=== PATIENT | female | born 1940 | race Caucasian/White ===

== ENCOUNTER 2023-03-26 15:49 | Emergency (ER) | payer MEDICARE, SELFPAY ==
[2023-03-26 16:03] VITALS: BP 100/51
--- NOTE | 2023-03-26 16:49 | ED.GENMED ---
History of Present Illness
General
Chief Complaint: Abdominal Symptoms
Source: patient
Exam Limitations: none
Time Seen by Provider: 03/26/23 16:37
Travel History
Have you had any contact with someone who has COVID-19?: No
Do you have any symptoms of coronavirus? Fever > 100 degrees, chills, cough, shortness of breath, sore throat, loss of taste or smell, muscle aches, or headache?: No
History of Present Illness
History of Present Illness:
82-year-old female sudden onset of watery diarrhea today. Described as brown. No blood or mucus. No melena or dark stool. No abdominal pain no fever. No unusual recent food ingestion. No travel history. No recent antibiotics. Patient does
have a history of colitis. Patient has not had diarrhea in the last almost 2 hours. Patient has taken 2 arthritis medications in the last 2 days for ongoing right hip and knee arthritis.
Past History
Past History
ED Past Medical History: Arrthythmia (Atrial fibrillation), Cancer, HTN and Other (Osteoarthritis)
ED Past Surgical History: Other (carotd surgery, lung surgery)
Patient has exhibited threatening behavior?: No
PSI?: No
Review of Systems
Review of Systems
All Other Systems: Not applicable
Constitutional: Denies fever
Respiratory: Reports no symptoms
Cardiac: Reports no symptoms
Phy Exam
Physical Exam
Physical Exam:
GENERAL: Alert and oriented in no apparent distress
EYE: Orbits normal.
NECK: Supple
CARDIAC: Regular rate and rhythm without any obvious murmurs.
LUNGS: Clear breath sounds,normal
ABDOMEN: Soft, without focal tenderness or distention. Stool brown to yellow and heme-negative
NEUROLOGICAL: Alert and oriented , grossly non-focal
, no rash or lesion, no discoloration, skin intact.
MUSCULOSKELETAL: No edema,no deformity.Good color
PSYCH: Normal and appropriate interaction.
Course
Orders/Labs/Results
Orders:
Orders
03/26/23 16:47
IV Insert/Care/Rem.- Treatment PRN
0.9% Sodium Chloride 500 ml [Nss] 500 ml IV BOLUS
03/26/23 16:59
Complete Blood Count/With Diff Urgent
Comprehensive Metabolic Panel Urgent
Lipase Urgent
03/26/23 19:30
0.9% Sodium Chloride 1000 ml [Nss] 1,000 ml IV 150 mls/hr
Abnormal Lab Results
03/26/23
16:59
RBC 3.53 L 10^6/uL
(4.20-5.40)
Hct 34.8 L %
(37.0-47.0)
MCH 34.6 H pg
(27.0-31.0)
Absolute Monos (auto) 0.7 H 10^3/uL
(0.1-0.6)
Lymphocytes % 19.2 L %
(20.5-51.1)
Monocytes % 10.1 H %
(1.7-9.3)
Sodium 134 L mmol/L
(135-145)
Carbon Dioxide 20 L mmol/L
(22-30)
BUN 64 H mg/dl
(7-17)
AST 56 H U/L
(14-36)
ALT 51 H U/L
(0-35)
Total Protein 5.9 L g/dl
(6.3-8.2)
Albumin 3.4 L g/dl
(3.5-5.0)
03/26/23 16:59
03/26/23 16:59
Vital Signs
Initial and Last Documented VS:
Initial Vital Signs
Temp Pulse Resp BP Pulse Ox
98.5 F 74 16 100/51 96
03/26/23 16:03 03/26/23 16:03 03/26/23 16:03 03/26/23 16:03 03/26/23 16:03
Last Documented Vital Signs
Temp Pulse Resp BP Pulse Ox
98.5 F 80 18 117/51 98
03/26/23 16:03 03/26/23 22:22 03/26/23 22:22 03/26/23 22:22 03/26/23 22:22
MDM/Problems Addressed
Differential Diagnosis Includes:
Patient describing watery diarrhea throughout the day. No blood or mucus. Testing negative. Totally benign abdomen. Workup in progress. Labs fluids culture no indication for radiologic test
*Critical Care Note
Total Time (30-74mins, 75-104mins- exclusive of procedures): Not Applicable
Update Note
Update Note:
1930.... Patient dehydrated by labs. However she has had no further diarrhea here. I do feel comfortable despite the elevated BUN and letting her go home given her lack of recurrence of diarrhea here and keeping p.o. fluids down. However she
states she is alone cannot get home and is uncomfortable being home overnight. Therefore we will give her some fluids overnight with the plan to discharge in the morning.
ED Attending Note
-
Portions of this chart may have been created with voice recognition software.� Occasional wrong word or��sound alike� substitutions may have occurred due to the inherent limitations of voice recognition software.
Discharge Plan
Departure
Patient Disposition: Home (Routine Discharge)
Date of Disposition: 03/26/23
Time of Disposition: 19:30
Patient with high blood pressure during this ER visit?: No
Discharge Problem:
Diarrhea/dehydration
Instructions: Diarrhea in adolescents and adults, Dehydration, Adult (DC)
Prescriptions:
No Action
Premarin 1 APPLIC cream
1 applic vaginal Q3D
cholestyramine (with sugar) 4 GM powder in packet
4 gm PO TID
Metamucil Fiber Singles 1 PACKET powder in packet
2 packet PO DAILY
multivitamin 1 EACH tablet
1 tab PO DAILY
oxybutynin chloride 5 mg Tablet Extended Release 24hr
5 mg PO HS
warfarin 5 mg Tablet
5 mg PO TH
warfarin 5 mg Tablet
7.5 mg PO SUMOTUWEFRSA
escitalopram oxalate [Lexapro] 10 mg Tablet
10 mg PO DAILY
diltiazem HCl 120 mg capsule,extended release 24hr
120 mg PO DAILY
Prevalite 4 gram powder
1 ea PO TID
alpha lipoic acid 200 mg Capsule
200 mg PO DAILY
sotalol 80 mg tablet
80 mg PO Q12H
prednisone 20 mg Tablet
40 mg PO DAILY 2 Days Qty: 4 0RF
acetaminophen [Pain Relief ES (acetaminophen)] 500 mg Tablet
1,000 mg PO TID Qty: 0 0RF
tramadol 50 mg Tablet
50 mg PO DAILY Qty: 2 0RF
tramadol 50 mg Tablet
100 mg PO HS Qty: 4 0RF
Referrals:
UNKNOWN - PT DOES,NOT KNOW [Family Provider] -
Activity Restrictions/Additional Instructions:
Stay well-hydrated
Follow-up with your physician in the next few days
Interventions
Interventions:
*Risk Screen - Suicide Last Done: 03/26/23 16:24
*General Assessment Last Done: 03/26/23 16:24
*Neglect/Abuse Screening Last Done: 03/26/23 16:24
ED- Fall Risk Assessment Last Done: 03/27/23 00:58
*ED COVID-19 Vaccine History Last Done: 03/26/23 16:03
*Nursing Disposition Last Done: 03/27/23 00:58
[facility] Assessment Last Done: 03/26/23 16:24
Discharge Date and Time
Discharge Date/Time: 03/27/23 00:59
[2023-03-26] MEDS: NSS 500 IV (17:00)
[2023-03-26 17:12] LABS: % Basophils 0.5 % (0-2); % Eosinophils 0.6 % (0-6); % Immature Granulocytes 0.2 % (0-0.5); % Lymphocytes 19.2 % (20.5-51.1); % Monocytes 10.1 % (1.7-9.3); % Neutrophils 69.4 % (42.2-75.2); Absolute Lymphocytes 1.2 10^3/uL (1.2-3.4); Absolute Monocytes 0.7 10^3/uL (0.1-0.6); Absolute Neutrophils 4.5 10^3/uL (1.4-6.5); Hematocrit 34.8 % (37.0-47.0); Hemoglobin 12.2 g/dL (12.0-16.0); Mean Corp Hgb Conc. 35.1 g/dL (33.0-37.0); Mean Corpuscular Hgb 34.6 pg (27.0-31.0); Mean Corpuscular Volume 98.6 fL (81.0-99.0); Mean Platelet Volume 9.3 fL (7.4-10.4); Nucleated Red Blood Cells % 0 %; Platelet Count 215 10^3/uL (130-400); Red Blood Cell Count 3.53 10^6/uL (4.20-5.40); Red Cell Dist. Width 12.7 % (11.5-14.5); White Blood Cell Count 6.5 10^3/uL (4.8-10.8)
[2023-03-26 17:22] LABS: ALT (SGPT) 51 U/L (0-35); AST (SGOT) 56 U/L (14-36); Albumin 3.4 g/dl (3.5-5.0); Alkaline Phosphatase 63 U/L (38-126); Blood Urea Nitrogen 64 mg/dl (7-17); Calcium 9.4 mg/dl (8.4-10.2); Carbon Dioxide 20 mmol/L (22-30); Chloride 104 mmol/L (98-107); Glucose 99 mg/dl (70-99); Potassium 4.1 mmol/L (3.5-5.1); Sodium 134 mmol/L (135-145); Total Bilirubin 0.4 mg/dl (0.2-1.3); Total Protein 5.9 g/dl (6.3-8.2); eGFR > 60.00
[2023-03-26 17:23] LABS: Lipase 200 U/L (23-300)
[2023-03-26 18:44] VITALS: BP 104/64
[2023-03-26 22:22] VITALS: BP 117/51
== END 2023-03-27 00:59 | disposition home or self-care (01) ==
LOC: EMR 15:49
PROVIDERS: EMERGENCY PHYSICIAN Emergency Medicine
DX: R19.7 Diarrhea, unspecified (principal); E86.0 Dehydration; I48.91 Unspecified atrial fibrillation; I10 Essential (primary) hypertension; M19.90 Unspecified osteoarthritis, unspecified site
CPT/HCPCS: 99283; 80053; 83690; 85025

== ENCOUNTER → 2023-04-03 10:48 | Outpatient (REF) | payer MEDICARE, SELFPAY ==
[2023-04-05 12:16] LABS: Quantiferon Mitogen minus NIL 3.02 IU/mL; Quantiferon NIL 0.01 IU/mL; Quantiferon Plus TB2 minus NIL 0.01 IU/mL (0.00-0.34); Quantiferon TB Gold Plus Negative (Negative)
== END ==
LOC: REG 10:48
PROVIDERS: ATTENDING PHYSICIAN Nurse Practitioner Family
DX: Z11.1 Encounter for screening for respiratory tuberculosis (principal)
CPT/HCPCS: 36415; 86480

== ENCOUNTER → 2023-05-12 12:53 | Outpatient (REF) | payer MEDICARE, SELFPAY ==
[2023-05-12 17:24] LABS: Urine Albumin 1+ (Neg - Trace); Urine Bilirubin Negative (Negative); Urine Character Very Cloudy (Clear); Urine Color Yellow; Urine Glucose Negative (Negative); Urine Ketone Trace (Negative); Urine Leukocyte 2+ (Negative); Urine Nitrite Positive (Negative); Urine Occult Blood 1+ (Negative); Urine Specific Gravity 1.015 (<1.030); Urine Urobilinogen Negative (Neg - 1+)
[2023-05-12 17:49] LABS: Urine Bacteria Many (Negative); Urine White Cell >100 /HPF (0-5)
== END ==
LOC: OLAB 12:53
PROVIDERS: ATTENDING PHYSICIAN Nurse Practitioner
DX: N39.0 Urinary tract infection, site not specified (principal)
CPT/HCPCS: 81003; 81015; 87077; 87086; 87186

== ENCOUNTER → 2023-07-01 11:14 | Outpatient (REF) | payer MEDICARE, SELFPAY | LOC: RAD 11:14 | PROVIDERS: ATTENDING PHYSICIAN Surgery Vascular Surgery; FAMILY PHYSICIAN Nurse Practitioner Family | DX: I65.23 Occlusion and stenosis of bilateral carotid arteries (principal) | CPT/HCPCS: 93880 ==

== ENCOUNTER 2023-07-07 17:21 | Inpatient (IN) | payer MEDICARE, SELFPAY ==
[2023-07-07] VITALS (10 sets, daily range): BP systolic 66–186; BP diastolic 46–114
[2023-07-07 14:22] LABS: % Basophils 0.7 % (0-2); % Eosinophils 2.5 % (0-6); % Immature Granulocytes 0.2 % (0-0.5); % Lymphocytes 20.8 % (20.5-51.1); % Monocytes 14.3 % (1.7-9.3); % Neutrophils 61.5 % (42.2-75.2); Absolute Eosinophils 0.2 10^3/uL (0-0.7); Absolute Lymphocytes 1.3 10^3/uL (1.2-3.4); Absolute Monocytes 0.9 10^3/uL (0.1-0.6); Absolute Neutrophils 3.7 10^3/uL (1.4-6.5); Hematocrit 33.1 % (37.0-47.0); Hemoglobin 11.4 g/dL (12.0-16.0); Mean Corp Hgb Conc. 34.4 g/dL (33.0-37.0); Mean Corpuscular Hgb 32.6 pg (27.0-31.0); Mean Corpuscular Volume 94.6 fL (81.0-99.0); Mean Platelet Volume 8.8 fL (7.4-10.4); Nucleated Red Blood Cells % 0 %; Platelet Count 188 10^3/uL (130-400); Red Cell Dist. Width 12.2 % (11.5-14.5)
--- NOTE | 2023-07-07 14:29 | ED.GENMED ---
History of Present Illness
General
Chief Complaint: Abnormal Lab Value
Time Seen by Provider: 07/07/23 14:01
Travel History
Have you had any contact with someone who has COVID-19?: No
Do you have any symptoms of coronavirus? Fever > 100 degrees, chills, cough, shortness of breath, sore throat, loss of taste or smell, muscle aches, or headache?: No
History of Present Illness
History of Present Illness:
83-year-old female presents to the emergency department for evaluation of hyponatremia she had routine outpatient preoperative labs done yesterday in anticipation of hip replacement, sodium was 125. Patient denies any acute complaints but notes
chronic fatigue and lightheadedness that she feels is due to poor sleep secondary to her chronic hip pain. She denies any vertigo symptoms. She is predominantly nonambulatory secondary to her chronic hip pain. Denies any diuretic usage. She does
note that she is on Lexapro for many years.
Past History
Past History
ED Past Medical History: Arrthythmia (Atrial fibrillation), Cancer, HTN and Other (Osteoarthritis)
ED Past Surgical History: Other (carotd surgery, lung surgery)
Patient has exhibited threatening behavior?: No
PSI?: No
Review of Systems
Review of Systems
Allergies reviewed?: Yes
All Other Systems: ROS reviewed and negative except as documented in HPI and ROS
Phy Exam
Physical Exam
Physical Exam:
GEN: Well appearing, NAD, WDWN
HEENT: Oral mucosa moist, no scleral icterus
Cardiac: Regular rate
Lung: No respiratory distress, no tachypnea
MSK: No gross deformity or injuries
Skin: Good color, no pallor or jaundice, no rashes
Neuro: AO x3, moves all extremities freely
Psych: Calm, cooperative
Course
Orders/Labs/Results
Orders:
Orders
07/07/23 Lunch
Regular
Fluid Restriction: 1200 mL/day (40 oz)
07/07/23 14:13
Complete Blood Count/With Diff Urgent
Comprehensive Metabolic Panel Urgent
Free T4 Urgent
Serum Osmolality Urgent
TSH Reflex To Free T4 Urgent
07/07/23 15:27
Osmolality, Random Urine Urgent
Date Specimen was Collected: 07/07/23
Time Specimen was Collected: 15:26
Urinalysis Reflex To Culture Urgent
Date Specimen was Collected: 07/07/23
Time Specimen was Collected: 15:26
Urine Sodium Urgent
Date Specimen was Collected: 07/07/23
Time Specimen was Collected: 15:26
07/07/23 16:59
Admit/Transfer Patient As Directed
Co-Sign Provider:
Level of Care: Inpatient admission
Assign to:: Telemetry
Physician / Group: hernández/hospitalist
Diagnosis: Hyponatremia
Reason for Telemetry: Medication for Arrhythmia
Date to Stop Telemetry: 07/09/23
Time to Stop Telemetry: 11:00
Reason for Hospitalization: Hyponatremia
Expected length of stay greater than two midnights?: Yes
ELOS- Estimated Length of Stay in days: 5
I certify the patient meets the requirements for IP care: Yes
07/07/23 17:00
3% Sodium Chloride 250 ml [Sodium Chloride 3%] 250 ml IV ONCE
07/07/23 17:01
Code Status As Directed
Resuscitation Status: Full Code
07/07/23 17:14
PT/INR [Prothrombin Time] Stat
07/07/23 17:15
Oxycodone [Roxicodone] 2.5 mg PO Q4HPRN PRN
07/07/23 21:00
Basic Metabolic Panel Routine
07/09/23 11:00
DC Protocol for Telemetry ONCE
Abnormal Lab Results
07/07/23 07/07/23 07/07/23
14:13 15:27 17:14
RBC 3.50 L 10^6/uL
(4.20-5.40)
Hgb 11.4 L g/dL
(12.0-16.0)
Hct 33.1 L %
(37.0-47.0)
MCH 32.6 H pg
(27.0-31.0)
Absolute Monos (auto) 0.9 H 10^3/uL
(0.1-0.6)
Monocytes % 14.3 H %
(1.7-9.3)
PT 24.9 H Sec
(11.4-14.6)
Sodium 121 L mmol/L
(135-145)
Chloride 97 L mmol/L
(98-107)
Carbon Dioxide 18 L mmol/L
(22-30)
BUN 19 H mg/dl
(7-17)
Serum Osmolality 259 L mOsm/kg
(275-300)
Total Protein 5.8 L g/dl
(6.3-8.2)
Albumin 3.3 L g/dl
(3.5-5.0)
TSH (Reflex) 0.22 L uIU/ml
(0.47-4.68)
Urine Osmolality 228 L mOsm/kg
(300-900)
Urine Sodium 16 L mmol/L
(30-90)
07/07/23 14:13
07/07/23 14:13
Vital Signs
Initial and Last Documented VS:
Initial Vital Signs
Temp Pulse Resp BP Pulse Ox
97.8 F 59 18 66/46 97
07/07/23 13:43 07/07/23 13:43 07/07/23 13:43 07/07/23 13:43 07/07/23 13:43
Last Documented Vital Signs
Temp Pulse Resp BP Pulse Ox
97.8 F 67 14 85/76 97
07/07/23 13:43 07/07/23 18:30 07/07/23 18:30 07/07/23 18:00 07/07/23 13:43
MDM/Problems Addressed
MDM/Problems Addressed:
Patient with gradually downtrending hyponatremia. Etiology was felt to be most likely due to SSRI use. After review of labs and case with nephrology we opted to initiate hypertonic saline infusion. Will be admitted to the hospitalist service for
further management
*Critical Care Note
Total Time (30-74mins, 75-104mins- exclusive of procedures): Not Applicable
ED Attending Note
-
Portions of this chart may have been created with voice recognition software.� Occasional wrong word or��sound alike� substitutions may have occurred due to the inherent limitations of voice recognition software.
Discharge Plan
Departure
Patient Disposition: Admit
Date of Disposition: 07/07/23
Time of Disposition: 15:47
Admit to: Med/Surg
Presentation/result/management discussed w/ accepting MD/DO: Hospitalist
Discharge Problem:
Acute hyponatremia
Interventions
Interventions:
*Risk Screen - Suicide Last Done: 07/07/23 14:05
*General Assessment Last Done: 07/07/23 14:02
*Neglect/Abuse Screening Last Done: 07/07/23 14:02
ED- Fall Risk Assessment Last Done: 07/07/23 17:07
*ED COVID-19 Vaccine History Last Done: 07/07/23 14:02
[2023-07-07 14:51] LABS: ALT (SGPT) 21 U/L (0-35); AST (SGOT) 29 U/L (14-36); Albumin 3.3 g/dl (3.5-5.0); Alkaline Phosphatase 50 U/L (38-126); Blood Urea Nitrogen 19 mg/dl (7-17); Calcium 9.1 mg/dl (8.4-10.2); Carbon Dioxide 18 mmol/L (22-30); Chloride 97 mmol/L (98-107); Glucose 90 mg/dl (70-99); Potassium 4.3 mmol/L (3.5-5.1); Sodium 121 mmol/L (135-145); Total Bilirubin 0.5 mg/dl (0.2-1.3); Total Protein 5.8 g/dl (6.3-8.2); eGFR > 60.00
[2023-07-07 15:03] LABS: Osmolality Serum 259 mOsm/kg (275-300)
[2023-07-07 15:10] LABS: TSH Reflex To Free T4 0.22 uIU/ml (0.47-4.68)
[2023-07-07 15:33] LABS: Urine Albumin Negative (Neg - Trace); Urine Bilirubin Negative (Negative); Urine Character Clear (Clear); Urine Color Yellow; Urine Glucose Negative (Negative); Urine Ketone Negative (Negative); Urine Leukocyte Negative (Negative); Urine Nitrite Negative (Negative); Urine Occult Blood Negative (Negative); Urine Urobilinogen Negative (Neg - 1+)
[2023-07-07 15:36] LABS: Osmolality Urine 228 mOsm/kg (300-900)
[2023-07-07 15:44] LABS: Free T4 1.02 ng/dl (0.78-2.19)
[2023-07-07 15:49] LABS: Urine Sodium 16 mmol/L (30-90)
--- NOTE | 2023-07-07 16:32 | W.CON.NEPH ---
Consultation
-
Date/Time Consultation Requested: July 07, 2023 4 PM
Date/Time Consultation Performed: July 07, 2023 4:30 PM
Requesting Provider: Dr. Ordonez
Performing Provider: Dr. Aiken
Reason for Consultation: Hyponatremia
Medical History
-
Chief Complaint: Hyponatremia
History of Present Illness:
This is an 83-year-old female with significant medical history. She has hypertension on a multidrug regimen, anxiety on Lexapro therapy, paroxysmal atrial fibrillation on Coumadin anticoagulation as well as sotalol. She has been planning for right
hip replacement which was initially set for May of this year though this was postponed given infectious issues. It was then postponed to July. She comes in because she was having preoperative blood work which had shown hyponatremia at 125.
Given some complaints of dizziness she was sent to the emergency room. Here she was noted to be 121. We are asked to assist with management of the hyponatremia. This has been present for some time, on and off for several years but more
consistently in the last year. She says that she does drink a lot of fluid at [place] since totaling close to 80-84 ounces per day.
Past Medical History
Osteoarthritis, hypertension, hyperlipidemia, atrial fibrillation, carotid artery stenosis with endarterectomy, left atrial appendage thrombus, COPD, pulmonary nodules, adenocarcinoma of the lung status post radiation resection 2019, collagenous
colitis, colonic polyps, vertigo, overactive bladder, anxiety, hyponatremia incisional hernia repair with mesh, appendectomy, tonsillectomy, wisdom teeth extraction
Social History
Tobacco: Former Smoker
Alcohol: None
Family History
No CKD
Allergies / Home Medications
Allergy/AdvReac Type Severity Reaction Status Date / Time
amoxicillin Allergy Diarrhea Verified 07/01/23 12:03
cephalexin [From Keflex] Allergy Unknown Verified 07/01/23 12:03
ciprofloxacin Allergy Nausea / Verified 07/01/23 12:03
Vomiting
clavulanic acid Allergy Unknown Verified 07/01/23 12:03
[From Augmentin]
house dust Allergy NASAL Verified 07/01/23 12:03
BLOCKAGE
magnesium Allergy Collagenous Verified 07/01/23 12:03
collitis/can't
take
anything
with
magnesium
in i
mold Allergy NASAL Verified 07/01/23 12:03
BLOCKAGE
nitrofurantoin Allergy Did not Verified 07/01/23 12:03
work
Sulfa (Sulfonamide Allergy 'thrush Verified 07/01/23 12:03
Antibiotics) after
taking
while on
chemo'
�Medication �Instructions �Recorded �Confirmed �Type
warfarin 5 mg tablet 5 mg PO SUMOSA Blood Clot 07/10/22 07/07/23 History
Prevention/Tx
warfarin 5 mg tablet 7.5 mg PO TUWETHFR Blood Clot 07/10/22 07/07/23 History
Prevention/Tx
escitalopram oxalate 10 mg tablet 10 mg PO DAILY Depression 10/13/22 07/07/23 History
(Lexapro)
alpha lipoic acid 200 mg capsule 200 mg PO DAILY 01/16/23 07/07/23 History
diltiazem HCl 120 mg 120 mg PO DAILY@199901/16/23 07/07/23 History
capsule,extended release 24 hr
sotalol 80 mg tablet 80 mg PO Q12H 01/16/23 07/07/23 History
biotin 5,000 mcg chewable tablet 5,000 mcg PO DAILY 05/04/23 07/07/23 History
psyllium husk 3.4 gram/5.4 gram 2 tbsp PO DAILY 05/04/23 07/07/23 History
oral powder (Metamucil)
cranberry 500 mg capsule 500 mg PO DAILY 07/01/23 07/07/23 History
estradiol 0.01% (0.1 mg/gram) 1 g vaginal SUWE@199907/01/23 07/07/23 History
vaginal cream
gabapentin 100 mg capsule 100 mg PO DAILY 07/01/23 07/07/23 History
lisinopril 10 mg tablet 10 mg PO DAILY 07/01/23 07/07/23 History
loperamide 2 mg capsule 2 mg PO QID PRN diarrhea 07/01/23 07/07/23 History
cholestyramine-aspartame 4 gram 4 g PO TID 07/07/23 07/07/23 History
oral powder (Cholestyramine Light)
cyclobenzaprine 5 mg tablet 5 mg PO HS 07/07/23 07/07/23 History
doxycycline hyclate 100 mg capsule 100 mg PO BID 07/07/23 07/07/23 History
vibegron 75 mg tablet (Gemtesa) 75 mg PO DAILY 07/07/23 07/07/23 History
Review of Systems
-
Right hip to knee pain. No excessive thirst. No issues with urination. No chest pain or shortness of breath.
All other systems: Negative unless noted
Physical Exam
Vital Signs
Vital Signs
Temp Pulse Resp BP Pulse Ox
97.8 F 61 18 162/81 97
07/07/23 13:43 07/07/23 14:00 07/07/23 14:00 07/07/23 13:58 07/07/23 13:43
Lab Results
WBC 6.0 10^3/uL (4.8-10.8) 07/07/23 14:13
RBC 3.50 10^6/uL (4.20-5.40) L 07/07/23 14:13
Hgb 11.4 g/dL (12.0-16.0) L 07/07/23 14:13
Hct 33.1 % (37.0-47.0) L 07/07/23 14:13
Plt Count 188 10^3/uL (130-400) 07/07/23 14:13
Sodium 121 mmol/L (135-145) L 07/07/23 14:13
Potassium 4.3 mmol/L (3.5-5.1) 07/07/23 14:13
Chloride 97 mmol/L (98-107) L 07/07/23 14:13
Carbon Dioxide 18 mmol/L (22-30) L 07/07/23 14:13
BUN 19 mg/dl (7-17) H 07/07/23 14:13
Creatinine 0.6 mg/dL (0.6-1.0) 07/07/23 14:13
eGFR > 60.00 07/07/23 14:13
Glucose 90 mg/dl (70-99) 07/07/23 14:13
Calcium 9.1 mg/dl (8.4-10.2) 07/07/23 14:13
Albumin 3.3 g/dl (3.5-5.0) L 07/07/23 14:13
Physical Exam
Patient is awake alert oriented and in no distress. Mood and affect were pleasant, insight and judgment were good. Pupils are equal round and reactive to light, extraocular movements are intact, sclera were anicteric. Hearing was normal, ears and
nose are intact. Oropharynx was clear. Neck was supple with trachea midline and no thyromegaly. Heart was regular rate and rhythm without rubs. Lower extremities without edema. Lungs were clear to auscultation bilaterally and with normal
excursion. Abdomen was soft, nontender, with normal active bowel sounds, and no hepatosplenomegaly. Skin was without rash and with normal turgor. Pain to palpation right lateral upper leg.
Data Reviewed
-
Labs: Labs Reviewed by me (Hemoglobin 11.4, sodium 121, potassium 4.3, bicarb 18, creatinine 0.6, BUN 19, glucose 90, calcium 9.1, AST 29, TSH 0.22, urine osmolality 222, urine sodium 16)
Old Records: Reviewed (Echocardiogram November 20, 2022 ejection fraction 60%, biatrial enlargement, moderate MR; on 07/06/2023 sodium 125, on 05/08/2023 sodium 133, on 01/26/2023 sodium 130)
Assessment/Plan
-
Assessment:
Osteoarthritis, severe in the right hip with pain
Hypertension
Atrial fibrillation
Hyponatremia acute on chronic
Metabolic acidosis
Pulmonary nodules with history of lung cancer
Anxiety on Lexapro
Plan:
Fluid restriction 40 ounces
Hypertonic saline 30 cc/h for 250 cc
Serial blood work
May need to discontinue Lexapro no pain is likely the predominant stimulus
May consider Samsca tomorrow
--- NOTE | 2023-07-07 16:45 | HPS.HSE ---
Family Physician
-
Family Physician: TANIA Byers
Chief Complaint
-
abnormal lab value
History of Present Illness
83 female extensive past medical history with chronic right hip pain is presenting from long-term with abnormal lab value as outpatient. Patient supposed to undergo surgery in July 28 and was undergoing outpatient preop lab testing. Was found
to have abnormal labs with hyponatremia. States of severe chronic hip pain and pain relieved with pain medications. States she is compliant with outpatient medication. States of chronic vertigo. Denies any nausea vomiting or diarrhea.
Tolerating diet. Patient states she is drinking increasing amount of water at the long-term. States she has been on Lexapro for prolonged period of time.
Medical History
Past Medical History
Past Medical History: Reports Other
Additional Past Medical History:
Primary Hypertension
HyperLipidemia
Persistent atrial fibrillation and atrial flutter status post cardioversion status post ablation
Left anterior fascicular block
Carotid stenosis status post CEA
Peripheral vascular disease
Valvular disease
History of CVA
COPD
Lung cancer
Collagenous colitis
Vertigo
Chronic constipation
Depression/anxiety
Past Surgical History: Reports Other
Additional Past Surgical History:
Afib s/p Cardioversion.
Right carotid endarterectomy.
Left carotid endarterectomy.
Left upper lobe lobectomy and lymph node biopsy.
Incisional hernia repair with mesh.
Appendectomy
Tonsillectomy
[place] teeth extraction
Social History
Tobacco: Former Smoker
Alcohol: Former
Living: Detention
Family History
Family History: Not pertinent
Allergies / Home Medications
Allergies reflects when Allergies were last updated in [employer]).
Home Medications with original date entered in [employer] ([employer])
Allergy/Medication List:
Allergies
Allergy/AdvReac Type Severity Reaction Status Date / Time
amoxicillin Allergy Diarrhea Verified 07/01/23 12:03
cephalexin [From Keflex] Allergy Unknown Verified 07/01/23 12:03
ciprofloxacin Allergy Nausea / Verified 07/01/23 12:03
Vomiting
clavulanic acid Allergy Unknown Verified 07/01/23 12:03
[From Augmentin]
house dust Allergy NASAL Verified 07/01/23 12:03
BLOCKAGE
magnesium Allergy Collagenous Verified 07/01/23 12:03
collitis/can't
take
anything
with
magnesium
in i
mold Allergy NASAL Verified 07/01/23 12:03
BLOCKAGE
nitrofurantoin Allergy Did not Verified 07/01/23 12:03
work
Sulfa (Sulfonamide Allergy 'thrush Verified 07/01/23 12:03
Antibiotics) after
taking
while on
chemo'
Home Medications
[facility]Tx 07/10/22
warfarin 5 mg tablet 7.5 mg PO [facility] Blood Clot Prevention/Tx 07/10/22
escitalopram oxalate 10 mg tablet (Lexapro) 10 mg PO DAILY Depression 10/13/22
alpha lipoic acid 200 mg capsule 200 mg PO DAILY 01/16/23
diltiazem HCl 120 mg capsule,extended release 24 hr 120 mg PO DAILY@199901/16/23
sotalol 80 mg tablet 80 mg PO Q12H 01/16/23
biotin 5,000 mcg chewable tablet 5,000 mcg PO DAILY 05/04/23
psyllium husk 3.4 gram/5.4 gram oral powder (Metamucil) 2 tbsp PO DAILY 05/04/23
cranberry 500 mg capsule 500 mg PO DAILY 07/01/23
estradiol 0.01% (0.1 mg/gram) vaginal cream 1 g vaginal SUWE@199907/01/23
gabapentin 100 mg capsule 100 mg PO DAILY 07/01/23
lisinopril 10 mg tablet 10 mg PO DAILY 07/01/23
loperamide 2 mg capsule 2 mg PO QID PRN diarrhea 07/01/23
cholestyramine-aspartame 4 gram oral powder (Cholestyramine Light) 4 g PO TID 07/07/23
cyclobenzaprine 5 mg tablet 5 mg PO HS 07/07/23
doxycycline hyclate 100 mg capsule 100 mg PO BID 07/07/23
vibegron 75 mg tablet (Gemtesa) 75 mg PO DAILY 07/07/23
Review of Systems
-
History Source: Patient
A 12 point ROS was completed and negative except as noted: Yes
Physical Exam
Vital Signs
Vital Signs
Temp Pulse Resp BP Pulse Ox
97.8 F 61 18 162/81 97
07/07/23 13:43 07/07/23 14:00 07/07/23 14:00 07/07/23 13:58 07/07/23 13:43
Physical Exam
General: Well Developed, Well Nourished, No Apparent Distress and Other (hard of hearing. )
HEENT: NormoCephalic, Moist mucous membranes and Atraumatic
Respiratory: Clear
Cardiac: S1/S2 and Regular Rhythm; No Murmur or Rub
GI: Soft, Non Tender, Non Distended and Normal Bowel Sounds; No Organomegaly
Rectal: Deferred by Provider
Musculoskeletal: No Clubbing, No Cyanosis and No Edema
Skin: No Rash
Neuro: Awake and Nonfocal/grossly intact
Psych: Calm
Laboratory Results
-
07/07/23 14:13
Laboratory Results
Total Bilirubin 0.5 mg/dl (0.2-1.3) 07/07/23 14:13
AST 29 U/L (14-36) 07/07/23 14:13
ALT 21 U/L (0-35) 07/07/23 14:13
Alkaline Phosphatase 50 U/L (38-126) 07/07/23 14:13
Impression/Plan
-
#Hyponatremia
Check urine studies and serum osm
Check TSH and cortisol
Started patient on 3% saline per nephrology
Trend BMP
Nephrology rec
Fluid restriction
#Persistent atrial fibrillation and atrial flutter status post cardioversion status post ablation
Continue with home regimen of sotalol and Cardizem
Continue Coumadin. Hold Coumadin for INR >3. Labs pending from today.
Check INR
#Primary Hypertension
Continue Cardizem and Lisinopril
Blood pressure is controlled
#HyperLipidemia
Cont diet control
#Mood disorder
Hold Lexapro for now
Osteoarthritis
Chronic R hip pain
Continue with pain control
PT and OT in the morning
Outpatient surgery scheduled for next month
Collagenous colitis
Continue Imodium
Continue Metamucil
DVT ppx-coumadin
Full code
I spent a total of 78 minutes with the patient or on the floor. More than 50% of this time involved counseling and coordination of care.
[2023-07-07] MEDS: SODIUM CHLORIDE 3% 250 IV (16:54)
[2023-07-07] MEDS: ROXICODONE 2.5 MG PO ×2 (17:21→22:59)
[2023-07-07 17:31] LABS: INR 2.27; PT 24.9 Sec (11.4-14.6)
[2023-07-07] MEDS: BETAPACE 80 MG PO (22:47)
[2023-07-07] MEDS: CARDIZEM CD 120 MG PO (22:59)
[2023-07-07] MEDS: COUMADIN 7.5 MG PO (23:04)
[2023-07-07] MEDS: VIBRAMYCIN 100 MG PO (23:04)
[2023-07-08] VITALS (9 sets, daily range): BP systolic 90–139; BP diastolic 43–72; PULSE 63–71; O2SAT 97; BMI 23.5
[2023-07-08 00:35] LABS: Blood Urea Nitrogen 16 mg/dl (7-17); Calcium 9.1 mg/dl (8.4-10.2); Carbon Dioxide 22 mmol/L (22-30); Chloride 102 mmol/L (98-107); Estimated Creatinine Clearance 68 ml/min; Glucose 128 mg/dl (70-99); Potassium 3.6 mmol/L (3.5-5.1); Sodium 129 mmol/L (135-145); eGFR > 60.00
[2023-07-08] MEDS: SODIUM CHLORIDE 3% 250 IV (01:45)
[2023-07-08] MEDS: ROXICODONE 2.5 MG PO ×3 (05:33→21:47)
[2023-07-08 08:00] LABS: INR 2.39; PT 26.4 Sec (11.4-14.6)
[2023-07-08 08:05] LABS: Blood Urea Nitrogen 16 mg/dl (7-17); Calcium 9.2 mg/dl (8.4-10.2); Carbon Dioxide 24 mmol/L (22-30); Chloride 105 mmol/L (98-107); Estimated Creatinine Clearance 68 ml/min; Glucose 88 mg/dl (70-99); Potassium 4.2 mmol/L (3.5-5.1); Sodium 134 mmol/L (135-145); eGFR > 60.00
[2023-07-08] MEDS: METAMUCIL, KONSYL 1 PACKET PO (08:37)
[2023-07-08] MEDS: ZESTRIL 10 MG PO (08:37)
[2023-07-08] MEDS: NEURONTIN 100 MG PO (08:37)
--- NOTE | 2023-07-08 08:43 | PTCARENOTE ---
per attending sodium 3% stopped, pt at 0600 134. pt awake and alert asking for AM medications, manual BP check
[2023-07-08] MEDS: QUESTRAN 4 GRAM PO ×3 (08:48→21:42)
--- NOTE | 2023-07-08 10:24 | W.PN.HOSP.TC ---
Today's Communication/Plan
-
trend bmp
pt/ot
Assessment / Plan
Assessment / Plan
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
s/p 3% saline
Sodium at 134 this am.
Trend BMP
Nephrology rec
Fluid restriction
Plan to observe for now.
Lexapro held for now
#Persistent atrial fibrillation and atrial flutter status post cardioversion status post ablation
Continue with home regimen of sotalol and Cardizem
Continue Coumadin. Hold Coumadin for INR >3. INR at 2.37. Goal 2-3.
Check INR daily
#Subclinical hyperthyroidism
-repeat TFTs in 4-5 weeks as OP
#Primary Hypertension
Continue Cardizem and Lisinopril
Blood pressure is controlled
#HyperLipidemia
Cont diet control
#Mood disorder
Hold Lexapro for now
Osteoarthritis
Chronic R hip pain
Continue with pain control
PT and OT
Outpatient surgery scheduled for next month
Collagenous colitis
Continue Metamucil
DVT ppx-coumadin
Full code
PT/OT
d/w with nephrology
Anticipated Discharge: > 48 hours
Subjective/Interval History
-
Date of Service: July 08, 2023
states pain is improved with pain meds
Objective Data
-
Labs:
Laboratory Results
07/07/23 07/08/23 07/08/23
21:00 00:13 06:56
PT 26.4 H
INR 2.39
Sodium Cancelled 129 L D 134 L
Potassium Cancelled 3.6 4.2
Chloride Cancelled 102 105
Carbon Dioxide Cancelled 22 24
BUN Cancelled 16 16
Creatinine Cancelled 0.6 0.6
Glucose Cancelled 128 H 88
Calcium Cancelled 9.1 9.2
Vital Signs:
Vital Signs
Temp Pulse Resp BP Pulse Ox
97.9 F 66 16 118/72 95
07/08/23 07:00 07/08/23 08:15 07/08/23 07:00 07/08/23 08:37 07/08/23 07:00
I&O
07/07/23 07/08/23 07/09/23
06:59 06:59 06:59
Output Total 350 / 350
Balance -350 / -350
Data Reviewed
-
Total Time Spent with Patient (in minutes): 55
[2023-07-08] MEDS: BETAPACE 80 MG PO ×2 (11:05→21:42)
--- NOTE | 2023-07-08 14:50 | W.PN.NEPH.PH ---
Today's Communication / Plan
-
- liberate fluids
- no samsca
Assessment/Plan
-
Assessment:
Osteoarthritis, severe in the right hip with pain
Hypertension
Atrial fibrillation
Hyponatremia acute on chronic
Metabolic acidosis
Pulmonary nodules with history of lung cancer
Anxiety on Lexapro
Plan:
Uosm 228, Sabrina 16
Consistent with hypovolemic hyponatremia +/- SIADH
Na now up to 134 after HTS
Liberate fluids to 60oz of water
Serial blood work
May need to discontinue Lexapro no pain is likely the predominant stimulus
No need for samsca at this time
If she is able to maintain Na, we will s/o tomorrow
-
-
Date of Service: July 08, 2023
CC / HPI / ROS
-
Chief Complaint:
hyponatremia
History of Present Illness:
Na up to 134 today s/p 3%
okay with liberation of fluids and encouraged solute intake
Review of Systems:
feeling well today, no complaints other than back pain
Labs
-
Labs:
WBC 6.0 10^3/uL (4.8-10.8) 07/07/23 14:13
RBC 3.50 10^6/uL (4.20-5.40) L 07/07/23 14:13
Hgb 11.4 g/dL (12.0-16.0) L 07/07/23 14:13
Hct 33.1 % (37.0-47.0) L 07/07/23 14:13
Plt Count 188 10^3/uL (130-400) 07/07/23 14:13
Sodium 134 mmol/L (135-145) L 07/08/23 06:56
Potassium 4.2 mmol/L (3.5-5.1) 07/08/23 06:56
Chloride 105 mmol/L (98-107) 07/08/23 06:56
Carbon Dioxide 24 mmol/L (22-30) 07/08/23 06:56
BUN 16 mg/dl (7-17) 07/08/23 06:56
Creatinine 0.6 mg/dL (0.6-1.0) 07/08/23 06:56
eGFR > 60.00 07/08/23 06:56
Glucose 88 mg/dl (70-99) 07/08/23 06:56
Calcium 9.2 mg/dl (8.4-10.2) 07/08/23 06:56
Albumin 3.3 g/dl (3.5-5.0) L 07/07/23 14:13
Physical Exam
-
Vital Signs:
Vital Signs
Temp Pulse Resp BP Pulse Ox
97.8 F 72 18 105/52 97
07/08/23 11:00 07/08/23 11:05 07/08/23 11:00 07/08/23 11:00 07/08/23 11:00
Cardiovascular:: Regular rate and rhythm
Respiratory:: Bilateral: CTA
Lung Excursion:: Normal
Abdomen:: Nontender and Soft
Bowel Sounds:: Normal
Extremity Edema:: None: Bilateral:
Bridges Catheter: No
--- NOTE | 2023-07-08 15:41 | CM ---
Reviewed chart, met with patient to obtain information for assessment. Patient stated that she lives at [facility]. She described herself as dependent with her ADLs, personal care, dressing, bathing and uses a w/c instead of ambulation and uses a
walker for transferring.
Patient gets her meals, transportation, residential lawn specialist, laundry and cleaning done by community. Patient has nurses who manage her medications. She has a niece who is supportive and in the area.
Patient has a prescription plan and uses the [facility]. Her PCP is, Janet MARIN.
Patient stated that she would like to return to [facility] when she is medically cleared. She feels that she is at her baseline.
Placed a call to [facility] and spoke with one of patient's RNs, Ranjana, who agreed that patient sounds at baseline and stated that she can accept patient back when medically stable.
Plan: Case management will continue to follow and assist with discharge planning. Back to [facility] when stable.
[2023-07-08] MEDS: CARDIZEM CD 120 MG PO (20:29)
[2023-07-08] MEDS: FLEXERIL 5 MG PO (21:40)
[2023-07-08] MEDS: COUMADIN 7.5 MG PO (21:42)
[2023-07-08] MEDS: TYLENOL 650 MG PO (23:12)
[2023-07-09] MEDS: ROXICODONE 2.5 MG PO ×3 (01:52→14:25)
[2023-07-09] MEDS: LIDOCAINE 4% PATCH 1 PATCH TOPICAL (01:52)
--- NOTE | 2023-07-09 03:06 | PTCARENOTE ---
Pt. c/o pain to R hip and knee. PRN roxicodone administered. About an hour later, patient rang call grider asking for pain medication. This RN reminded patient that she was given pain medication already and it was too soon to administer another dose.
This RN offered PRN tylenol. PRN tylenol administered. About 30 minutes later patient rang the call grider asking for pain meds. This RN again reminded patient that she already rec'd pain medication and it was too early for more. Patient apologetic
and stated that she forgot. Pt. rang call grider again stating 'I'm in agony, nothing is working I need something else.' This RN notified TANIA Quezada. New order rec'd for lidocaine patch to right hip. Lidocaine patch applied to where patient
asked for it. PRN pain meds administered. Patient called this RN back into room stating 'we need to move this lidocaine patch up higher, I could have done a better job.' Lidocaine patch moved higher up hip per patient request. Plan of care ongoing.
[2023-07-09 03:43] VITALS: BP 119/46
[2023-07-09 06:51] LABS: INR 2.67; PT 28.8 Sec (11.4-14.6)
[2023-07-09 07:07] LABS: Blood Urea Nitrogen 27 mg/dl (7-17); Calcium 9.7 mg/dl (8.4-10.2); Carbon Dioxide 23 mmol/L (22-30); Chloride 105 mmol/L (98-107); Estimated Creatinine Clearance 51 ml/min; Glucose 87 mg/dl (70-99); Potassium 4.3 mmol/L (3.5-5.1); Sodium 134 mmol/L (135-145); eGFR > 60.00
[2023-07-09 07:45] VITALS: BP 139/60
[2023-07-09] MEDS: NEURONTIN 100 MG PO (10:11)
[2023-07-09] MEDS: ZESTRIL 10 MG PO (10:12)
[2023-07-09] MEDS: BETAPACE PO (10:15)
[2023-07-09] MEDS: METAMUCIL, KONSYL 1 PACKET PO (10:16)
[2023-07-09 11:17] VITALS: BP 136/62
--- NOTE | 2023-07-09 11:27 | W.PN.HOSP.TC ---
Today's Communication/Plan
-
DC
OP BMP
Assessment / Plan
Assessment / Plan
#Hypotonic hypovolemic Hyponatremia +/-due to SIADH in setting of chronic hip pain
s/p 3% saline
Sodium remains stable at 134
Trend BMP
Nephrology rec
Fluid restriction liberalize to 60oz now
Lexapro held for now and probably needs to DC
Discussed with nephrology okay for discharge with outpatient blood work.
#Persistent atrial fibrillation and atrial flutter status post cardioversion status post ablation
Continue with home regimen of sotalol and Cardizem
Continue Coumadin. Hold Coumadin for INR >3. INR at 2.6. Goal 2-3.
Check INR daily
#Subclinical hyperthyroidism
-repeat TFTs in 4-5 weeks as OP
#Primary Hypertension
Continue Cardizem and Lisinopril
Blood pressure is controlled
#HyperLipidemia
Cont diet control
#Mood disorder
Hold Lexapro for now
Osteoarthritis
Chronic R hip pain
Continue with pain control
PT and OT
Outpatient surgery scheduled for next month
Collagenous colitis
Continue Metamucil
DVT ppx-coumadin
Full code
More than 30 minutes spent in discharge including
Final examination of the patient
Summarizing hospital stay
Instructions for continuing care to all relevant caregivers
Preparation of discharge records, prescriptions, and referral forms
Total time spent (in minutes): 45
Anticipated Discharge: Today
Subjective/Interval History
-
Date of Service: July 09, 2023
pain controlled with current regimen
Objective Data
-
Labs:
Laboratory Results
07/09/23
06:16
PT 28.8 H
INR 2.67
Sodium 134 L
Potassium 4.3
Chloride 105
Carbon Dioxide 23
BUN 27 H
Creatinine 0.8
Glucose 87
Calcium 9.7
Vital Signs:
Vital Signs
Temp Pulse Resp BP Pulse Ox
98 F 60 16 136/62 98
07/09/23 11:17 07/09/23 11:17 07/09/23 11:17 07/09/23 11:17 07/09/23 11:17
I&O
07/08/23 07/09/23 07/10/23
06:59 06:59 06:59
Intake Total 1440 / 1440
Output Total 350 / 350 1025 / 1025
Balance -350 / -350 415 / 415
Physical Exam
-
General: No Apparent Distress
HEENT: Normocephalic and Atraumatic
Respiratory: Clear to Auscultation; Negative Wheezes
Cardiac: S1/S2 and Irregular Rhythm
Breast: Deferred by me
GI: Soft, Nontender and Nondistended
Rectal: Deferred by Provider
Genito-urinary: Deferred by me
Musculoskeletal: No Clubbing, No Cyanosis and No Edema
Skin: Warm
Neuro: Awake and Nonfocal/Grossly Intact
Psych: Calm
[2023-07-09] MEDS: QUESTRAN 4 GRAM PO ×2 (11:35→16:58)
--- NOTE | 2023-07-09 11:55 | W.DCSUMMARY ---
Discharge Summary
Discharge Data
Date of Admission: 07/07/23
Date of Discharge: 07/09/23
-
Pending Results: No
Hospital Course
83 female past medical history of severe osteoarthritis, chronic right hip pain, collagenous colitis, mood disorder, hyperlipidemia, primary hypertension, persistent atrial fibrillation, chronic coagulopathy with Coumadin who is presented with
abnormal lab value as outpatient. Patient with chronic hip pain and undergoing preop evaluation for surgery scheduled for next month. Patient was found to have abnormal sodium of 125 as outpatient and was admitted to the hospital. Upon admission
sodium was found to be 121. Evaluated by nephrology in the ER and was started on hypertonic saline. Hypertonic saline was continued. Patient's sodium up trended to 134. Fluid restriction was liberalized. Lexapro was discontinued. Hypertonic
saline discontinued and monitor off for 24 hours. Sodium continues to remain stable. Patient will need repeat BMP as outpatient. TSH was checked and found to be in subclinical hyper thyroidism repeat TFTs as outpatient was recommended. Patient
was eval by physical and Occupational Therapy and be discharged back to previous living situation. Discussed case with nephrology who said okay for discharge with outpatient repeat BMP.
Discharge Plan
-
Patient Disposition: Prison/SNF
Discharge Diagnosis/Procedures: Hypotonic hypovolemic Hyponatremia +/-due to SIADH in setting of chronic hip pain in setting of lexapro usage
Condition: Fair
Diet: As tolerated and Restrict fluids to 64 oz
Activity: With assistance and As tolerated
Driving Restrictions: Not until seen by your Dr
Blood Work: BMP in 7 days viaprimary doctor
repeat thyroid function testing in 4-5 weeks via primary doctor.
Referrals:
Janet Prabhakar CRNP [Family Provider] - in less than 1 week
Additional Discharge Medication Instructions: Lexapro was discontinued
Prescriptions:
New
lidocaine 4 % Adhesive Patch,Medicated
1 patch topical HS Qty: 15 0RF
acetaminophen 325 mg Tablet
650 mg PO Q4HPRN PRN (Reason: mild pain/CERDA/temp> 100.4F) Qty: 30 0RF
oxycodone 5 mg Tablet
2.5 mg PO BIDPRN PRN (Reason: MOD-SEVERE PAIN) Qty: 5 0RF
Continued
warfarin 5 mg Tablet
5 mg PO SUMOSA
Patient Comments:
07/07/2023, take at bedtime.
warfarin 5 mg Tablet
7.5 mg PO WETHFR
Patient Comments:
07/07/2023, take at bedtime.
diltiazem HCl 120 mg capsule,extended release 24hr
120 mg PO DAILY@1999
alpha lipoic acid 200 mg Capsule
200 mg PO DAILY
sotalol 80 mg tablet
80 mg PO Q12H
Metamucil 3.4 gram/5.4 gram Powder
2 tbsp PO DAILY
biotin 5,000 mcg Tablet,Chewable
5,000 mcg PO DAILY
loperamide 2 mg Capsule
2 mg PO QID PRN (Reason: diarrhea)
Patient Comments:
07/07/2023, QIDPRN for 10 days; prescription written on 06/19/2023 according to [place] paperwork.
lisinopril 10 mg Tablet
10 mg PO DAILY
gabapentin 100 mg Capsule
100 mg PO DAILY
estradiol 0.01 % (0.1 mg/gram) Cream
1 g VAGINAL SUWE@1999
cyclobenzaprine 5 mg Tablet
5 mg PO HS
Cholestyramine Light 4 gram Powder
4 g PO TID
Gemtesa 75 mg Tablet
75 mg PO DAILY
Discontinued
escitalopram oxalate [Lexapro] 10 mg Tablet
10 mg PO DAILY
cranberry 500 mg Capsule
500 mg PO DAILY
doxycycline hyclate 100 mg Capsule
100 mg PO BID
Patient Comments:
07/07/2023, instructed to take one capsule BID for 7 days; filled on 06/30/2023 per pharmacy.
Discharge Orders:
Discharge Patient (As Directed); Ordered 07/09/23
Ordered By: Nick Otoole
Discharge Date and Time
Print Language: MACEDONIAN
--- NOTE | 2023-07-09 12:51 | CM ---
Reviewed chart, spoke with Maty montilla of patient's RNs at . She confirmed that she can have her come back today. #for report [phone] ask for nurses station . Will review IMM with patient and put on chart.
Plan: Case management will continue to follow and assist with discharge planning. Back to .
--- NOTE | 2023-07-09 14:50 | W.PN.NEPH.PH ---
Today's Communication / Plan
-
- sign off
Assessment/Plan
-
Assessment:
Osteoarthritis, severe in the right hip with pain
Hypertension
Atrial fibrillation
Hyponatremia acute on chronic
Metabolic acidosis
Pulmonary nodules with history of lung cancer
Anxiety on Lexapro
Plan:
Uosm 228, Sabrina 16
Consistent with hypovolemic hyponatremia +/- SIADH
Na now up to 134 after HTS two days prior
Liberate fluids to 60oz of water
Serial blood work
encourage solute intake
May need to discontinue Lexapro no pain is likely the predominant stimulus
No need for samsca at this time
She has been able to maintain Na, will s/o at this time
Plan for repeat labs in 2 weeks to be sent to PCP to ensure stability of Na
-
-
Date of Service: July 09, 2023
CC / HPI / ROS
-
Chief Complaint:
hyponatremia
History of Present Illness:
Na up to 134 today s/p 3% two days prior
okay with liberation of fluids and encouraged solute intake
Review of Systems:
feeling well today, no complaints other than back pain
Labs
-
Labs:
WBC 6.0 10^3/uL (4.8-10.8) 07/07/23 14:13
RBC 3.50 10^6/uL (4.20-5.40) L 07/07/23 14:13
Hgb 11.4 g/dL (12.0-16.0) L 07/07/23 14:13
Hct 33.1 % (37.0-47.0) L 07/07/23 14:13
Plt Count 188 10^3/uL (130-400) 07/07/23 14:13
Sodium 134 mmol/L (135-145) L 07/09/23 06:16
Potassium 4.3 mmol/L (3.5-5.1) 07/09/23 06:16
Chloride 105 mmol/L (98-107) 07/09/23 06:16
Carbon Dioxide 23 mmol/L (22-30) 07/09/23 06:16
BUN 27 mg/dl (7-17) H 07/09/23 06:16
Creatinine 0.8 mg/dL (0.6-1.0) 07/09/23 06:16
eGFR > 60.00 07/09/23 06:16
Glucose 87 mg/dl (70-99) 07/09/23 06:16
Calcium 9.7 mg/dl (8.4-10.2) 07/09/23 06:16
Albumin 3.3 g/dl (3.5-5.0) L 07/07/23 14:13
Physical Exam
-
Vital Signs:
Vital Signs
Temp Pulse Resp BP Pulse Ox
98 F 60 16 136/62 98
07/09/23 11:17 07/09/23 11:17 07/09/23 11:17 07/09/23 11:17 07/09/23 11:17
Cardiovascular:: Regular rate and rhythm
Respiratory:: Bilateral: CTA
Lung Excursion:: Normal
Abdomen:: Nontender and Soft
Bowel Sounds:: Normal
Extremity Edema:: None: Bilateral:
Bridges Catheter: No
[2023-07-09 15:39] VITALS: BP 127/67
== END 2023-07-09 18:08 | DRG 644 ==
LOC: 3 WEST ACU 17:21
PROVIDERS: Physician Assistant; ADMITTING PHYSICIAN Hospitalist; EMERGENCY PHYSICIAN Emergency Medicine; FAMILY PHYSICIAN Nurse Practitioner Family; OTHER PHYSICIAN Specialist
DX: E22.2 Syndrome of inappropriate secretion of antidiuretic hormone (principal); E87.20 Acidosis, unspecified; I48.19 Other persistent atrial fibrillation; I48.92 Unspecified atrial flutter; M25.551 Pain in right hip; G89.29 Other chronic pain; E78.5 Hyperlipidemia, unspecified; F32.A Depression, unspecified; I10 Essential (primary) hypertension; K52.831 Collagenous colitis; E86.1 Hypovolemia
CPT/HCPCS: 80048; 80053; 81003; 83930; 83935; 84300; 84439; 84443; 85025; 85610; 97163; 97167; 99285

== ENCOUNTER 2023-07-29 11:09 | Inpatient (IN) | payer MEDICARE, SELFPAY ==
--- NOTE | 2023-05-01 10:53 | CM ---
Addendum entered by Adelaida Valero 07/30/23 06:43:
Multiple additional conversations with patient. Explained that [facility] won't have a bed available for her. Discussed options and PAC data. She selects for referrals to be sent to [facility] (1st choice), [facility] and
[facility].
Referrals sent to above facilities. [facility] can accept. Patient updated.
Addendum entered by Adelaida Valero 07/07/23 11:35:
Spoke again with patient to discuss discharge plans. She is now agreeable to SNF. She would like to go to [facility]. PAC data andother options reviewed. [facility] is patient's only choice at this time.
Addendum entered by Adelaida Valero 06/23/23 10:15:
Patient's surgery date has been changed to 07/29/23. Spoke again with patient. Reintroduced role of Orthopedic Navigator and confirmed information previously obtained for case management assessment. patient states that she is now wheel chair level
and doesn't ambulate due to hip pain. Also discussed orthopedic program and post surgical plans. Reviewed anticipated length of stay and discussed possible need for SNF if she is unable to safely return to [facility]. Patient very tearful. She
doesn't want to go to a SNF. Explained, at length, why SNF may be necessary. However patient continues to state that she doesn't want to go to a SNF.
Call placed to Kenan martin. Message was left with request for return call.
Addendum entered by Adelaida Valero 05/20/23 11:34:
Patient states that, in addition to her sister Violetta, and great nephew, Kenan (both listed as contacts), information can also be released to her sunni Hemingway Urmila [phone].
Original Note:
Patient is scheduled for an elective R THR on 05/21/23. Spoke with patient prior to surgery via telephone. Introduced role of Orthopedic Navigator. Patient reports that she lives in assisted living at [facility]. She currently requires assistance
with bathing and dressing but otherwise functions independently. All meals are provided and she receives assistance with medication administration. She uses a rolling walker in her apartment and wheel chair outside (she self propels). She also has a
commode (which she puts at her bedside at night) and firm cushion. PCP is Janet Prabhakar.
Discussed orthopedic program and post surgical plans. Reviewed anticipated length of stay and discussed discharge plans. Patient plans to return to [facility]. She will receive PT and OT at facility upon her return.
Patient will complete online education.
Plan: Orthopedic Navigator will remain available to assist with the care of patient and will reassess discharge needs after surgery.
[2023-05-08 14:07] VITALS: BMI 23.2
[2023-05-08 14:35] LABS: Hematocrit 37.6 % (37.0-47.0); Hemoglobin 12.3 g/dL (12.0-16.0); Mean Corp Hgb Conc. 32.7 g/dL (33.0-37.0); Mean Corpuscular Hgb 32.8 pg (27.0-31.0); Mean Corpuscular Volume 100.3 fL (81.0-99.0); Mean Platelet Volume 9.2 fL (7.4-10.4); Platelet Count 240 10^3/uL (130-400); Red Blood Cell Count 3.75 10^6/uL (4.20-5.40); Red Cell Dist. Width 12.6 % (11.5-14.5)
[2023-05-08 14:43] VITALS: BMI 23.2
[2023-05-08 14:50] LABS: ALT (SGPT) 29 U/L (0-35); AST (SGOT) 33 U/L (14-36); Albumin 3.6 g/dl (3.5-5.0); Alkaline Phosphatase 67 U/L (38-126); Blood Urea Nitrogen 18 mg/dl (7-17); Calcium 8.9 mg/dl (8.4-10.2); Carbon Dioxide 27 mmol/L (22-30); Chloride 99 mmol/L (98-107); Estimated Creatinine Clearance 51 ml/min; Glucose 90 mg/dl (70-99); Potassium 4.6 mmol/L (3.5-5.1); Sodium 131 mmol/L (135-145); Total Bilirubin 0.4 mg/dl (0.2-1.3); Total Protein 6.1 g/dl (6.3-8.2); eGFR > 60.00
[2023-05-09 08:43] LABS: Glycohemoglobin (HgbA1c) 5.4 % (4.0-5.6)
[2023-07-06 14:12] VITALS: BMI 22.7
[2023-07-06 14:34] LABS: Hematocrit 34.5 % (37.0-47.0); Hemoglobin 11.8 g/dL (12.0-16.0); Mean Corp Hgb Conc. 34.2 g/dL (33.0-37.0); Mean Corpuscular Hgb 32.5 pg (27.0-31.0); Mean Platelet Volume 8.9 fL (7.4-10.4); Platelet Count 203 10^3/uL (130-400); Red Blood Cell Count 3.63 10^6/uL (4.20-5.40); Red Cell Dist. Width 12.1 % (11.5-14.5); White Blood Cell Count 6.5 10^3/uL (4.8-10.8)
[2023-07-06 14:54] VITALS: BMI 22.7
[2023-07-06 14:56] LABS: ALT (SGPT) 20 U/L (0-35); AST (SGOT) 27 U/L (14-36); Albumin 3.4 g/dl (3.5-5.0); Alkaline Phosphatase 59 U/L (38-126); Blood Urea Nitrogen 20 mg/dl (7-17); Calcium 9.4 mg/dl (8.4-10.2); Carbon Dioxide 21 mmol/L (22-30); Chloride 96 mmol/L (98-107); Estimated Creatinine Clearance 58 ml/min; Glucose 83 mg/dl (70-99); Potassium 4.4 mmol/L (3.5-5.1); Sodium 125 mmol/L (135-145); Total Bilirubin 0.4 mg/dl (0.2-1.3); Total Protein 5.8 g/dl (6.3-8.2); eGFR > 60.00
--- NOTE | 2023-07-06 15:29 | HPS.HSE ---
Family Physician
-
Family Physician: TANIA Byers
Chief Complaint
-
Advanced primary osteoarthritis of the right hip.
History of Present Illness
The patient is an 83-year-old female presenting today for advanced primary osteoarthritis of the right hip. The patient reports significant right hip pain secondary to this diagnosis. She currently presents in a wheelchair because of her
pain. She notes that her current right hip pain is greatly interfering with her activities of daily living and is overall impacting her quality of life. She has tried and failed multiple conservative treatment measures in the past for her right hip
pain. These conservative treatment measures include activity modification, self-directed therapeutic exercises, medical management with Tylenol, and the application of ice and/or heat. Recent x-ray findings of the right hip demonstrated advanced
osteoarthritis with joint space narrowing and flattening of the femoral head. She was determined to be in need of a right total hip arthroplasty. She denies any current complaints today such as chest pain, shortness of breath at rest, palpitations,
nausea, vomiting, diarrhea, lightheadedness, dizziness, cough, sore throat, or fever.
Medical History
Past Medical History
Past Medical History: Reports Other
Additional Past Medical History:
1. Osteoarthritis.
2. Hypertension.
3. Hyperlipidemia.
4. Persistent atrial fibrillation and atypical atrial flutter, status post IDALIA-guided cardioversion, 06/2022, and pulmonary vein isolation 09/2022; pharmacological therapy with Sotalol and Diltiazem, oral anticoagulation with Warfarin.
5. Left anterior fascicular block.
6. Carotid stenosis, status post right carotid endarterectomy, 07/2019, and left carotid endarterectomy 01/2020.
7. Peripheral vascular disease.
8. Mild to moderate mitral regurgitation.
9. Mild tricuspid regurgitation.
10. Mild mitral stenosis.
11. Left atrial appendage thrombus, 05/2022, treated with Coumadin.
12. 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
13. Exercise-induced asthma.
14. COPD.
15. Pulmonary nodules.
16. Invasive adenocarcinoma of lung, 2020, status post left upper lobectomy, lymph node biopsy, and chemotherapy.
17. Chronic dyspnea on exertion due to recent deconditioning.
18. Collagenous colitis.
19. Colon polyps.
20. Diverticulosis.
21. Nephrolithiasis, non-obstructive.
22. Hepatic cysts.
23. Bilateral renal cysts.
24. Hemorrhoids.
25. Chronic constipation.
26. Vertigo.
27. Cognitive deficits.
28. Balance difficulties.
29. Ambulatory dysfunction.
30. Multilevel degenerative disc disease.
31. Kyphosis.
32. Subclinical hyperthyroidism
33. Overactive bladder.
34. History of recurrent UTIs; last 06/26/2023 and treated with Doxycycline.
35. Herpes zoster, 04/21/2023, resolved with Valacyclovir.
36. Depression.
37. Anxiety.
38. Hearing impairment bilaterally.
39. Recurrent hyponatremia, improving after recent hypertonic saline, fluid restriction, and discontinuation of Lexapro.
40. Remote history of tobacco abuse.
Past Surgical History: Reports Other
Additional Past Surgical History:
1. Cardioversion.
2. Transesophageal echocardiogram.
3. Right carotid endarterectomy.
4. Left carotid endarterectomy.
5. Left upper lobe lobectomy and lymph node biopsy.
6. Incisional hernia repair with mesh.
7. Appendectomy.
8. Tonsillectomy.
9. Ramsey teeth extraction.
10. Colonoscopy.
Social History
Tobacco: Former Smoker (She is a former less than one pack per day cigarette smoker who quit tobacco products altogether in 2000.)
Alcohol: None (Her last known alcohol was in December 2022. )
Living: Other (The patient lives in an apartment at [facility]. She currently requires assistance with bathing and dressing but otherwise functions independently.)
Family History
Family History: Not pertinent
Allergies / Home Medications
Allergy/Medication List:
MEDICATIONS:
1. Cranberry 500 mg p.o. daily.
2. Alpha lipoic acid 200 mg p.o. daily.
3. Biotin 5000 mcg p.o. daily.
4. Cholestyramine 4 gm p.o. three times a day.
5. Diltiazem 120 mg p.o. at bedtime.
6. Gemtesa 75 mg p.o. daily.
7. Metamucil two tablespoons p.o. daily.
8. Sotalol 80 mg p.o. every 12 hours.
9. Estradiol 1 gram vaginal Sundays and Wednesdays.
10. Gabapentin 100 mg p.o. daily.
11. Warfarin 5 mg p.o. Sundays, Mondays, Wednesdays, , and Saturdays.
12. Warfarin 7.5 mg p.o. on Tuesdays.
13. Lisinopril 10 mg p.o. daily.
14. Loperamide 2 mg p.o. four times a day as needed.
15. Cyclobenzaprine 5-10 mg p.o. at bedtime as needed.
ALLERGIES: Amoxicillin. Ciprofloxacin. Cephalexin. Augmentin. Nitrofurantoin. Sulfa. Magnesium. Mold. House dust.
Review of Systems
-
A 12 point ROS was completed and negative except as noted: Yes
Physical Exam
Vital Signs
Blood pressure 94/50. Heart rate 65. Respirations 18. Pulse ox 97% on room air.
Height 5 feet, 7 inches. Weight 65.771 kg. BMI 22.7.
Physical Exam
General: Well Developed, Well Nourished and No Apparent Distress
HEENT: NormoCephalic, Moist mucous membranes, Atraumatic and PERRLA
Respiratory: Clear
Cardiac: Irregular Rhythm
GI: Soft, Non Tender and Non Distended
Musculoskeletal: Other (Right hip and lower extremity: slight valgus alignment, mild effusion. Range of motion is full. Tenderness to palpation over lateral joint line and medial joint line. Pain with passive hip motion and groin and thigh.
Tenderness to palpation over trochanteric region. )
Skin: Warm and Dry
Neuro: AO x 3 and Other (Cognitive deficits noted at baseline. )
Psych: Anxious
Laboratory Results
-
07/06/23 14:10
07/06/23 14:10
Laboratory Results
Total Bilirubin 0.4 mg/dl (0.2-1.3) 07/06/23 14:10
AST 27 U/L (14-36) 07/06/23 14:10
ALT 20 U/L (0-35) 07/06/23 14:10
Alkaline Phosphatase 59 U/L (38-126) 07/06/23 14:10
Hemoglobin A1c 5.5.
Type and screen A positive.
MRSA screen negative.
Urinalysis 07/07/2023 unremarkable.
DIAGNOSTIC STUDIES OF 07/14/2023: Sodium 139. Potassium 3.8. BUN 13. Creatinine 0.62. Calcium 8.7.
EKG provided by Cardiology.
Echocardiogram 11/20/2022: Ejection fraction is 60-65%. Severely dilated left atrium. Severely dilated right atrium. Significant posterior mitral annular calcification with restricted posterior leaflet. Very mild mitral stenosis. Mean mitral valve
gradient is 2 mmHg. Mild to moderate mitral regurgitation. Mild tricuspid regurgitation. Colorful pattern suggestive of a small PFO.
Nuclear stress test 07/18/2022: Normal perfusion imaging. Ejection fraction is 62%. This is a moderate risk study due to the pharmacological agent used.
Impression/Plan
-
CLEARANCES:
1. Primary medical, TANIA Howard, cleared.
Primary medical phone number: [phone].
2. Cardiology, Dr. Chris Sanchez, cleared.
3. Dental cleared.
IMPRESSION/PLAN:
1. Advanced primary osteoarthritis of the right hip in need of a right total hip arthroplasty by Dr. Matt Willingham on 07/29/2023. The benefits and risks of the procedure have been explained to the patient. The patient understands these risks and
wishes to proceed.
2. Deep vein thrombosis prophylaxis: Warfarin with bilateral venous compression devices. Bridging is not indicated per her metal and plastic heater, Dr. Chris Sanchez, as her previous stroke occurred before anticoagulation was started. Bridging also
contraindicated due to the patient's frailty and her significant risk of falls due to ambulatory dysfunction. Warfarin will be resumed the evening of her procedure. Per cardiology, her first INR upon discharge will take place 1 week post-surgery
with results to them for further Warfarin dose adjustments. Plasma flow devices were also highly encouraged to be used in the outpatient setting upon discharge.
3. Pain management: Due to cognitive deficits at baseline and her elevated fall risk, we will use Oxycodone 2.5-5 mg as needed for moderate to severe post-operative pain. We will adjust her pain medications as indicated.
4. Ambulatory dysfunction and balance difficulties: The patient will be placed on fall precautions post-operatively.
5. Atrial fibrillation and atypical atrial flutter: The patient will be monitored on telemetry post-operatively. She will continue her home Sotalol and Diltiazem without interruption.
6. Chronic constipation: Daily MiraLAX will be added to a bowel regimen of Colace and Senokot post-operatively.
Patient's phone number: [phone].
Patient's contact (Violetta Coreas - Sister): [phone].
[2023-07-07 10:09] LABS: Glycohemoglobin (HgbA1c) 5.5 % (4.0-5.6)
--- NOTE | 2023-07-23 11:38 | W.PREADMORTH ---
Ortho Preadmission Testing
-
Per the recommendations of her vascular specialist (Cyrus), her right arm should be used for blood pressure measurements going forward, especially for intra-op surgical monitoring during her upcoming hip replacement. Please see the attached scanned
note in [employer] dated 07/22/2023.
[2023-07-29] VITALS (14 sets, daily range): BP systolic 136–193; BP diastolic 54–91; BMI 22.7
--- NOTE | 2023-07-29 09:07 | W.PN.UPDATE ---
Update Note
Progress Note Update
R hip OA s/p R JAILENE w/ Dr Willingham 07/29/23
DVT prophylaxis - Warfarin, b/l venous foot pumps
- No need for Lovenox bridge per Cardio
- First INR post-d/c to be drawn 1 week after surgery w/ results to Cardio for further dosing adjustments
HTN - + parameters - monitor BP
Persistent atrial fibrillation and atypical atrial flutter, status post IDALIA-guided cardioversion, 06/2022, and pulmonary vein isolation 09/2022
Left anterior fascicular block
- Monitor on tele
- Continue Sotalol and Diltiazem
- Resume Warfarin
Exercise-induced asthma
COPD
Pulmonary nodules
Invasive adenocarcinoma of lung, 2019, status post left upper lobectomy, lymph node biopsy, and chemotherapy
Chronic dyspnea on exertion due to recent deconditioning
- Monitor O2
- IS
Chronic constipation - add daily Miralax to bowel regimen of Colace and Senna
Cognitive deficits - minimize opioids as able
Balance difficulties and ambulatory dysfunction - on fall precautions
Subclinical hyperthyroidism - TSH to be monitored outpatient
Recurrent hyponatremia, improving after recent hypertonic saline, fluid restriction, and discontinuation of Lexapro - continue 60 oz fluid restriction, d/c of Lexapro
Hyperlipidemia
Carotid stenosis, status post right carotid endarterectomy, 07/2019, and left carotid endarterectomy 01/2020
Peripheral vascular disease
Mild to moderate mitral regurgitation
Mild tricuspid regurgitation
Mild mitral stenosis
Left atrial appendage thrombus, 05/2022, treated with Coumadin
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
Collagenous colitis
Colon polyps
Diverticulosis
Nephrolithiasis, non-obstructive
Hepatic cysts
Bilateral renal cysts
Hemorrhoids
Vertigo
Multilevel degenerative disc disease
Kyphosis
Overactive bladder
History of recurrent UTIs; last 06/26/2023 and treated with Doxycycline
Herpes zoster, 04/21/2023, resolved with Valacyclovir
Depression
Anxiety
Hearing impairment bilaterally
Remote history of tobacco abuse
[2023-07-29] MEDS: MOBIC 15 MG PO (11:56)
[2023-07-29] MEDS: BACTROBAN NASAL 1 GRAM NASAL (11:56)
[2023-07-29] MEDS: TYLENOL 650 MG PO ×3 (11:56→20:56)
[2023-07-29] MEDS: NORMOSOL-R 1000 IV (12:12)
[2023-07-29 12:35] LABS: INR 1.12; PT 14.5 Sec (11.4-14.6)
[2023-07-29] MEDS: BETAPACE 80 MG PO ×2 (13:02→20:53)
--- NOTE | 2023-07-29 15:32 | OR.RPT ---
Operative Report
Operative Report
Orthopaedic Surgery Operative Note
DATE OF OPERATION: 07/29/2023
PREOPERATIVE DIAGNOSES: Right hip osteoarthritis
POSTOPERATIVE DIAGNOSES: Same
OPERATION PERFORMED: Right total hip arthroplasty.
SURGEON: Matt Willingham MD
PHARMACY ASSISTANT: Maty Wadsworth PA-C who helped with patient and limb positioning and retraction
ANESTHESIA: Spinal
COMPLICATIONS: None.
ESTIMATED BLOOD LOSS: 30 mL.
DRAINS: None
SPECIMEN: None
FINDINGS: Full thickness degenerative changes to the femoral head
IMPLANTS:
Biomet G7 Acetabular Shell, cluster hole, size 54
Biomet G7 Highly Crosslinked PE Liner, neutral
Sandrita Acetabular bone screw, 6.5mm x1
Sandrita Heritage stem, size 12 with standard offset with distal centralizer
DJO bone cement; small cement restrictor
Biolox Ceramic Head, size 40mm +0
INDICATIONS: The patient presented to my office with debilitating right hip pain due to osteoarthritis. We reviewed the natural history of this problem, as well as the risks, benefits, and alternatives of various treatment options. The patient
exhausted all nonoperative treatment options and wished to proceed with hip replacement surgery. The patient understood the risks which included, but were not limited to, bleeding, infection, failure to relieve pain, more pain than preop, damage to
blood vessels and nerves, need for reoperation, mechanical failure of the implants, wound healing problems, stiffness, instability, blood clot, pulmonary embolism, myocardial infarction, pneumonia, arrhythmia, CVA, and . The patient accepted
these risks and wished to proceed. All questions were answered, and informed consent was obtained.
PROCEDURE IN DETAIL: The patient was identified in the preoperative holding area. The right hip was identified as the operative site. The patient was taken in the operating room and transferred to the operative table. Spinal anesthesia was
performed. IV antibiotics and tranexamic acid were administered. The patient was placed in the lateral position with Stulberg hip positioners. Axillary roll was placed. The down leg was well padded. All bony prominences were well padded. The
operative limb was prepped and draped in the usual sterile fashion.
Time out was performed. A posterolateral approach to the hip was used. The skin incision was centered over the greater trochanter. This was taken down sharply through subcutaneous tissues. Meticulous hemostasis was achieved throughout the case with
electrocautery. We split the fascia lang in line with skin incision. I split the gluteus reginaldo bluntly. We cauterized all crossing vessels as we split it. I palpated the sciatic nerve and made sure it was well posterior in the operative field. It
was protected throughout the case.
I performed a partial bursectomy to identify the short external rotators. The gluteus medius and minimus were identified and retracted anteriorly. I incised the piriformis tendon and conjoint tendon at their insertions. These were tagged for later
repair. I then performed a trapezoidal capsulotomy. The edges were tagged for later repair. I referenced the cut edge of the capsular flap to 2 fixed points on the greater trochanter for assistance with recreation of limb length and offset. I then
dislocated the hip posteriorly. I performed a femoral neck osteotomy approximately 5 mm above the lesser trochanter, as per preoperative templating. The femoral head measured 50 mm in outer diameter. I placed a curve hohmann retractor over the
anterior lip of the acetabulum between the labrum and the anterior hip capsule. A second retractor was placed inferiorly just distal to the transverse acetabular ligament. Circumferential view of the acetabulum was achieved. I incised the labrum and
pulvinar with electrocautery. I started with a 49 mm reamer and reamed down to the medial wall. I then sequentially reamed up to a 53mm reamer. This gave a nice bed of bleeding bone with excellent column support anteriorly and posteriorly. I
impacted the acetabular shell in approximately 40 degrees of abduction and 20 degrees of anteversion. I matched the anteversion of the transverse acetabular ligament. I also made sure that the anterior rim of the socket was not proud of the anterior
wall to minimize the chance of iliopsoas tendinitis. I confirmed the cup was well-seated. I placed 1 ileal screws in the posterior superior quadrant. I then impacted a neutral liner and confirmed it was well seated with the locking mechanism.
Attention was turned to the femur. Box osteotome and Charnley awe were used to open the canal. The femur was sequentially broached to size 12 which had appropriate fit and fill. A trial head was placed with standard offset neck and the hip was
reduced. Leg length and offset were checked and found to be appropriate. The length had been increased about 1cm according to preop plan. The hip was taken through complete range of motion and found to be stable in extension, the position of sleep,
and at 90 degrees of flexion and internal rotation.
Trials were removed and the femoral canal was prepared with irrigation and ribbon gauze packing sequentially. A cement restrictor was placed into the femoral canal 1cm distal to the tip of the femoral stem. This was measured off the trial femoral
stem. Once the femoral canal was prepared, the cement was mixed. Once doughy in consistency, the cement was pressurized into the canal with a cement gun. The stem was then carefully inserted into the canal with care to minimize rotation or
micromotion. Excess cement was removed. Once the cement was polymerized, the joint was irrigated copiously. The acetabular component was inspected to be free of cement particles and other debris. The final head was impacted onto clean and dry
trunion. Leg length and stability were checked again and found to be acceptable. The sciatic nerve was inspected and noted to be free of tension and uninjured.
A dilute betadine soak was performed for approximately 3 minutes, and then the hip was copiously irrigated. I repaired the capsule, piriformis, and conjoint tendon with #2 Ethibond to drill holes in the greater trochanter. Local anesthetic was
injected. The fascia lang was closed with #1 PDS in running fashion. The subcutaneous tissues were closed with 2-0 PDS in running fashion. The skin was reapproximated with 3-0 Monocryl subcuticular suture. I placed a Prineo dressing followed by a
Mepilex Ag dressing. The patient awoke from anesthesia without difficulty. Sponge and instrument counts were correct x2 at the end of the case. Leg lengths were checked on the hospital bed and noted to be equal.
I was present and participated in the entire procedure. The patient was sent to the recovery room in stable condition.
Emiliano Willingham MD
[2023-07-29] MEDS: ROXICODONE 5 MG PO ×2 (16:50→23:31)
[2023-07-29] MEDS: LIDOCAINE 4% PATCH TOPICAL (20:35)
[2023-07-29] MEDS: COLACE PO (20:50)
[2023-07-29] MEDS: SENOKOT PO (20:50)
[2023-07-29] MEDS: BACTROBAN 2% OINTMENT 1 APPLIC NASAL (20:52)
[2023-07-29] MEDS: CARDIZEM CD 120 MG PO (20:53)
[2023-07-29] MEDS: FLORASTOR 250 MG PO (20:54)
[2023-07-29] MEDS: ESTRACE 0.01% VAGINAL CREAM 1 APPLIC VAG (20:55)
[2023-07-29] MEDS: DECADRON 4 MG PO (20:56)
--- NOTE | 2023-07-29 21:00 | PTCARENOTE ---
Pt arrived to 2S via bed from PACU. Post Total Hip arthroplasty. Pt AAOX3. Pt complains of no pain. VSS. Mepilex to R hip C/D/I. Bed in lowest position, locked and call grider with in reach.
[2023-07-29] MEDS: NEURONTIN 100 MG PO (21:13)
[2023-07-29] MEDS: FLEXERIL 5 MG PO (21:13)
[2023-07-29] MEDS: ANCEF 5 IV (21:17)
[2023-07-29] MEDS: COUMADIN 5 MG PO (23:27)
[2023-07-30] MEDS: QUESTRAN 4 GRAM PO ×2 (00:36→09:14)
[2023-07-30] MEDS: TYLENOL 650 MG PO ×4 (01:05→14:28)
[2023-07-30] MEDS: NSS 1000 IV (01:11)
[2023-07-30 03:20] VITALS: BP 163/86
[2023-07-30] MEDS: ROXICODONE 5 MG PO (04:40)
[2023-07-30] MEDS: ANCEF 5 IV (05:06)
[2023-07-30 06:15] LABS: PT 17.3 Sec (11.4-14.6)
[2023-07-30 07:10] VITALS: BP 139/65
[2023-07-30 09:09] VITALS: BP 128/60; PULSE 81; O2SAT 97
[2023-07-30] MEDS: SENOKOT 17.1999999999999993 MG PO (09:10)
[2023-07-30] MEDS: NEURONTIN 100 MG PO (09:11)
[2023-07-30] MEDS: BETAPACE 80 MG PO (09:11)
[2023-07-30] MEDS: COLACE 100 MG PO (09:11)
[2023-07-30] MEDS: FLORASTOR 250 MG PO (09:11)
[2023-07-30] MEDS: LIDOCAINE 4% PATCH 2 PATCH TOPICAL (09:13)
[2023-07-30] MEDS: DECADRON 4 MG PO (09:13)
[2023-07-30] MEDS: BACTROBAN 2% OINTMENT 1 APPLIC NASAL (09:13)
[2023-07-30] MEDS: MIRALAX 17 GRAMS PO (09:14)
--- NOTE | 2023-07-30 09:46 | CM ---
Addendum entered by Adelaida Valero 07/30/23 10:58:
Spoke with Sussy at [facility]. She states that they received notification that patient is approved to come to them. Last covered day/next review date is 08/02. Auth # is [id number]. They requested forklift picker after 1500.
Call placed to Elif olivera. Update provided. Patient also updated.
Original Note:
Reviewed chart and held rounds with PT, OT and nursing. Patient admitted as planned for elective R THR. Met with patient at bedside. Confirmed information previously obtained for assessment. Also discussed discharge plans. The plan is for patient to
go to a SNF for rehab. She continues to select [facility].
Message was sent to [facility] with update and additional clinical was sent. they confirm their ability to accept patient today once auth is received. Their NPI is [id number]. Attending: Dr. Ashok Santiago; .
Report: [phone]

Call placed to [facility] ([phone]. SNF request initiated and pending reference number [id number]) received. Clinical was faxed to [phone]. Will await determination.
Patient will need stretcher auth due to hip precautions and need for assist of 2; medical necessity and transport forms completed and placed on chart.
[2023-07-30 11:12] VITALS: BP 106/51
--- NOTE | 2023-07-30 11:38 | W.PN.ORTHO ---
Today's Communication / Plan
-
D/c today since clinically stable.
Assessment
.
Distal Motor Intact: Yes
Dressing:
Clean, dry and intact.
Assessment:
R hip OA s/p R JAILENE w/ Dr Willingham 07/29/23
DVT prophylaxis - Warfarin, b/l venous foot pumps
- No need for Lovenox bridge per Cardio
- First INR post-d/c to be drawn 1 week after surgery w/ results to Cardio for further dosing adjustments
HTN - + parameters - BPs stable
Persistent atrial fibrillation and atypical atrial flutter, status post IDALIA-guided cardioversion, 06/2022, and pulmonary vein isolation 09/2022
Left anterior fascicular block
- Maintaining NSR on tele
- Continue Sotalol and Diltiazem
- Resumed Warfarin evening of POD 0
Exercise-induced asthma
COPD
Pulmonary nodules
Invasive adenocarcinoma of lung, 2019, status post left upper lobectomy, lymph node biopsy, and chemotherapy
Chronic dyspnea on exertion due to recent deconditioning
- SpO2 stable on RA
- IS
Chronic constipation - added daily Miralax to bowel regimen of Colace and Senna during admission
- Can switch back from Miralax to Metamucil upon d/c
Cognitive deficits - minimize opioids as able
Balance difficulties and ambulatory dysfunction - on fall precautions
Subclinical hyperthyroidism - TSH to be monitored outpatient
Recurrent hyponatremia, improving after recent hypertonic saline, fluid restriction, and discontinuation of Lexapro - continue 60 oz fluid restriction, d/c of Lexapro
Hyperlipidemia
Carotid stenosis, status post right carotid endarterectomy, 07/2019, and left carotid endarterectomy 01/2020
Peripheral vascular disease
Mild to moderate mitral regurgitation
Mild tricuspid regurgitation
Mild mitral stenosis
Left atrial appendage thrombus, 05/2022, treated with Coumadin
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
Collagenous colitis
Colon polyps
Diverticulosis
Nephrolithiasis, non-obstructive
Hepatic cysts
Bilateral renal cysts
Hemorrhoids
Vertigo
Multilevel degenerative disc disease
Kyphosis
Overactive bladder
History of recurrent UTIs; last 06/26/2023 and treated with Doxycycline
Herpes zoster, 04/21/2023, resolved with Valacyclovir
Depression
Anxiety
Hearing impairment bilaterally
Remote history of tobacco abuse
Plan
.
Surgery / Date: R JAILENE w/ Dr Willingham 07/29/23
DVT Prophylaxis: Coumadin
Activity:
Out of bed.
PT/OT
Discharge Plan: SNF
Subjective
.
.:
Patient resting comfortably in her chair this AM.
R hip pain overall well controlled with current pain meds.
Denies any new significant complaints.
Vital Signs and Labs
.
Vital Signs and Labs:
Lab Results
07/06/23 14:10
07/06/23 14:10
Temp Pulse Resp BP Pulse Ox
98.1 F 75 18 106/51 98
07/30/23 11:12 07/30/23 11:12 07/30/23 11:12 07/30/23 11:12 07/30/23 11:12
PT 17.3 Sec (11.4-14.6) H 07/30/23 04:38
INR 1.40 07/30/23 04:38
Non-invasive Hgb result: 11.7
Physical Exam
-
HEENT: No pallor, cyanosis, or jaundice. Throat clear.
NECK: Supple. No JVD.
RESPIRATORY: Lungs clear to auscultation.
CVS: S1, S2 normal. RRR.
ABDOMEN: Soft, non-tender. No distension.
EXTREMITIES: Strength equal, no calf pain with palpation/dorsiflexion. Calves soft.
CROSS COUNTRY TRUCK DRIVER: AOx3. Cognitive deficits at baseline. pan puller grossly intact
--- NOTE | 2023-07-30 12:01 | W.DS.TRANS ---
DC Summary - Scientific Illustrator
-
Discharge Instructions:
Sleep Apnea Risk Low
Discharge Diagnosis/Procedures R hip OA s/p R JAILENE w/ Dr Willingham 07/29/23
Diet Regular
Additional Diets Restrict fluids to 60 oz daily
Activity As tolerated,With Walker
Driving Restrictions No driving
Bathing Restrictions OK to Shower
Blood Work PT/INR on 08/05/2023 w/ results to Cardiology (Dr
. Chris Sanchez) for further Warfarin dose
adjustments.
Other Services PT,OT
Wound Care Leave dressing on until seen by surgeon's office
for follow-up in 2 weeks.
Instructions:
Stand-Alone Forms: Total Hip/Knee Replacement D/C
Changes to Home Medications: Yes
Discharge Medications:
DC Medications w/original date entered in [employer]
warfarin 5 mg tablet 7.5 mg PO Blood Clot Prevention/Tx 07/10/22
alpha lipoic acid 200 mg capsule 200 mg PO DAILY Supplement 01/16/23
diltiazem HCl 120 mg capsule,extended release 24 hr 120 mg PO DAILY@1999 Heart Disease/Condition 01/16/23
sotalol 80 mg tablet 80 mg PO Q12H Arrhythmia 01/16/23
biotin 5,000 mcg chewable tablet 5,000 mcg PO DAILY Supplement 05/04/23
psyllium husk 3.4 gram/5.4 gram oral powder (Metamucil) 2 tbsp PO DAILY Constipation 05/04/23
estradiol 0.01% (0.1 mg/gram) vaginal cream 1 g vaginal SUWE@1999 Hormonal Agent 07/01/23
cholestyramine-aspartame 4 gram oral powder (Cholestyramine Light) 4 g PO TID Gastrointestinal Issue 07/07/23
cyclobenzaprine 5 mg tablet 5 mg PO HS Muscle Spasms 07/07/23
vibegron 75 mg tablet (Gemtesa) 75 mg PO DAILY Urinary Issue 07/07/23
acetaminophen 325 mg tablet 650 mg (2 x 325 mg) PO Q4HWA #60 tabs 07/30/23
dexamethasone 4 mg tablet 4 mg PO BID #5 tabs 07/30/23
docusate sodium 100 mg capsule 100 mg PO BID #30 caps 07/30/23
gabapentin 100 mg capsule 100 mg PO TID neuropathic pain #1 cap 07/30/23
lidocaine 4 % topical patch 2 patch topical DAILY #30 ea 07/30/23
lisinopril 10 mg tablet 10 mg PO DAILY Blood Pressure #0 tabs 07/30/23
oxycodone 5 mg tablet 2.5 - 5 mg (0.5 - 1 x 5 mg) PO Q6H PRN moderate-severe pain #15 tabs 07/30/23
prochlorperazine maleate 5 mg tablet 5 mg PO Q8H PRN nausea and vomiting #30 tabs 07/30/23
sennosides 8.6 mg tablet (Senna Laxative) 17.2 mg (2 x 8.6 mg) PO BID #30 tabs 07/30/23
warfarin 5 mg tablet 5 mg PO SUMOSA Blood Clot Prevention/Tx #0 tabs 07/30/23
Home Medication Changes
acetaminophen 325 mg tablet 650 mg (2 x 325 mg) PO Q4HWA #60 tabs 07/30/23
dexamethasone 4 mg tablet 4 mg PO BID #5 tabs 07/30/23
docusate sodium 100 mg capsule 100 mg PO BID #30 caps 07/30/23
gabapentin 100 mg capsule 100 mg PO TID neuropathic pain #1 cap 07/30/23
lidocaine 4 % topical patch 2 patch topical DAILY #30 ea 07/30/23
oxycodone 5 mg tablet 2.5 - 5 mg (0.5 - 1 x 5 mg) PO Q6H PRN moderate-severe pain #15 tabs 07/30/23
prochlorperazine maleate 5 mg tablet 5 mg PO Q8H PRN nausea and vomiting #30 tabs 07/30/23
sennosides 8.6 mg tablet (Senna Laxative) 17.2 mg (2 x 8.6 mg) PO BID #30 tabs 07/30/23
Pending Results: Yes (MRSA nasal swab )
[2023-07-30 15:15] VITALS: BP 129/58
== END 2023-07-30 15:40 | DRG 470 ==
LOC: 2 SOUTH 11:09
PROVIDERS: Physician Assistant; Specialist; ADMITTING PHYSICIAN Orthopaedic Surgery; FAMILY PHYSICIAN Nurse Practitioner Family
PROC: 0SR9049 Replacement of Right Hip Joint with Ceramic on Polyethylene Synthetic Substitute, Cemented, Open Approach (ICD-10-PCS; 2023-07-29)
DX: M16.11 Unilateral primary osteoarthritis, right hip (principal); I48.19 Other persistent atrial fibrillation; I48.4 Atypical atrial flutter; E87.1 Hypo-osmolality and hyponatremia; J44.89 Other specified chronic obstructive pulmonary disease; I10 Essential (primary) hypertension; K59.09 Other constipation; J45.998 Other asthma; I44.4 Left anterior fascicular block; E78.5 Hyperlipidemia, unspecified; E05.80 Other thyrotoxicosis without thyrotoxic crisis or storm; I08.1 Rheumatic disorders of both mitral and tricuspid valves; I69.320 Aphasia following cerebral infarction; I73.9 Peripheral vascular disease, unspecified; R41.89 Other symptoms and signs involving cognitive functions and awareness; R26.89 Other abnormalities of gait and mobility; M40.209 Unspecified kyphosis, site unspecified; N32.81 Overactive bladder; Z79.01 Long term (current) use of anticoagulants; Z90.2 Acquired absence of lung [part of]; Z85.118 Personal history of other malignant neoplasm of bronchus and lung; Z87.891 Personal history of nicotine dependence; Z88.2 Allergy status to sulfonamides; Z88.0 Allergy status to penicillin
CPT/HCPCS: 36415; 73502; 80053; 83036; 85027; 85610; 86850; 86900; 86901; 87070; 97163; 97167; 97530; C1713; C1776

== ENCOUNTER 2023-11-19 13:01 | Inpatient (IN) | payer MEDICARE, SELFPAY ==
[2023-11-06 14:04] VITALS: BMI 28.0
[2023-11-06 14:27] LABS: Hematocrit 33.6 % (37.0-47.0); Hemoglobin 11.1 g/dL (12.0-16.0); Mean Corpuscular Volume 96.8 fL (81.0-99.0); Mean Platelet Volume 9.7 fL (7.4-10.4); Platelet Count 205 10^3/uL (130-400); Red Blood Cell Count 3.47 10^6/uL (4.20-5.40); Red Cell Dist. Width 12.3 % (11.5-14.5); White Blood Cell Count 4.7 10^3/uL (4.8-10.8)
[2023-11-06 15:08] LABS: ALT (SGPT) 26 U/L (0-35); AST (SGOT) 30 U/L (14-36); Albumin 3.6 g/dl (3.5-5.0); Alkaline Phosphatase 69 U/L (38-126); Blood Urea Nitrogen 20 mg/dl (7-17); Calcium 9.2 mg/dl (8.4-10.2); Carbon Dioxide 24 mmol/L (22-30); Chloride 105 mmol/L (98-107); Estimated Creatinine Clearance 57 ml/min; Glucose 92 mg/dl (70-99); Potassium 4.1 mmol/L (3.5-5.1); Sodium 137 mmol/L (135-145); Total Bilirubin 0.2 mg/dl (0.2-1.3); Total Protein 5.9 g/dl (6.3-8.2); eGFR > 60.00
[2023-11-07 10:01] LABS: Glycohemoglobin (HgbA1c) 4.8 % (4.0-5.6)
[2023-11-13 11:59] VITALS: BMI 28.0
[2023-11-17 10:04] VITALS: BMI 28.0
[2023-11-19] VITALS (9 sets, daily range): BP systolic 103–202; BP diastolic 69–115; BMI 28.0
[2023-11-19] MEDS: NORMOSOL-R/PLASMALYTE-A 1000 IV (13:00)
[2023-11-19] MEDS: TYLENOL 650 MG PO ×2 (13:30→20:11)
--- NOTE | 2023-11-19 13:30 | W.PN.UPDATE ---
Update Note
Progress Note Update
L hip OA s/p L JAILENE w/ Dr Willingham 11/19/23
- s/p R JAILENE w/ Dr Willingham 07/29/23
DVT prophylaxis - Warfarin, b/l venous foot pumps
- No need for Lovenox bridge per Cardio
HTN - + parameters - monitor BP
Persistent atrial fibrillation and atypical atrial flutter, status post IDALIA-guided cardioversion, 06/2022, and pulmonary vein isolation 09/2022
Left anterior fascicular block
- Monitor on tele
- Continue Sotalol and Diltiazem
- Resume Warfarin
Exercise-induced asthma
COPD
Pulmonary nodules
Invasive adenocarcinoma of lung, 2019, status post left upper lobectomy, lymph node biopsy, and chemotherapy
Chronic dyspnea on exertion due to recent deconditioning
- Monitor O2
- IS
Chronic constipation - add daily Miralax to bowel regimen of Colace and Senna
Cognitive deficits - minimize opioids as able
Balance difficulties and ambulatory dysfunction - on fall precautions
Subclinical hyperthyroidism - TSH to be monitored outpatient
Recurrent hyponatremia, improving after recent hypertonic saline, fluid restriction, and discontinuation of Lexapro - continue 60 oz fluid restriction
Hyperlipidemia
Carotid stenosis, status post right carotid endarterectomy, 07/2019, and left carotid endarterectomy 01/2020
Peripheral vascular disease
Mild to moderate mitral regurgitation
Mild tricuspid regurgitation
Mild mitral stenosis
Left atrial appendage thrombus, 05/2022, treated with Coumadin
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
Collagenous colitis
Colon polyps
Diverticulosis
Nephrolithiasis, non-obstructive
Hepatic cysts
Bilateral renal cysts
Hemorrhoids
Vertigo
Multilevel degenerative disc disease
Kyphosis
Overactive bladder
History of recurrent UTIs
Herpes zoster, 04/21/2023, resolved with Valacyclovir
Depression
Anxiety
Hearing impairment bilaterally
Remote history of tobacco abuse
[2023-11-19] MEDS: BACTROBAN NASAL 1 GRAM NASAL (13:32)
[2023-11-19 13:37] LABS: INR 1.09; PT 14.1 Sec (11.4-14.6)
--- NOTE | 2023-11-19 14:04 | PTCARENOTE ---
RN called Dre Francisco at [facility] regarding the incomplete medication reconciliation. Patient verbalized to RN that she did not receive any medications this morning and that she called down to the nursing station and told one of the
nurses. RN communicated this concern to the staff member from the facility. The staff member told RN that they were signed out as given. Deng PETER, SDS Tool Maintenance Technician was made aware.
--- NOTE | 2023-11-19 17:55 | SUR.PHASEI ---
Report to ROME Zarate. [id number]
--- NOTE | 2023-11-19 17:56 | SUR.PHASEI ---
Report to ROME Zarate. Carlos Hay RN BSN.
--- NOTE | 2023-11-19 18:02 | OR.RPT ---
Operative Report
Operative Report
Orthopaedic Surgery Operative Note
DATE OF OPERATION: 11/19/2023
PREOPERATIVE DIAGNOSES: Left hip osteoarthritis
POSTOPERATIVE DIAGNOSES: Same
OPERATION PERFORMED: Left total hip arthroplasty.
SURGEON: Matt Willingham MD
FILM CLEANER: Armando Light PA-C who helped with patient and limb positioning and retraction
ANESTHESIA: Spinal
COMPLICATIONS: None.
ESTIMATED BLOOD LOSS: 50 mL.
DRAINS: None
SPECIMEN: None
FINDINGS: Full thickness degenerative changes to the femoral head and acetabulum
IMPLANTS:
Biomet G7 Acetabular Shell, cluster hole, size 54
Biomet G7 Highly Crosslinked PE Liner, neutral
Sandrita Heritage stem, size 12 with standard offset with distal centralizer
DJO bone cement; small cement restrictor
Biolox Ceramic Head, size 40mm +3.5 mm
INDICATIONS: The patient presented to my office with debilitating left hip pain due to osteoarthritis. We reviewed the natural history of this problem, as well as the risks, benefits, and alternatives of various treatment options. The patient
exhausted all nonoperative treatment options and wished to proceed with hip replacement surgery. The patient understood the risks which included, but were not limited to, bleeding, infection, failure to relieve pain, more pain than preop, damage to
blood vessels and nerves, need for reoperation, mechanical failure of the implants, wound healing problems, stiffness, instability, blood clot, pulmonary embolism, myocardial infarction, pneumonia, arrhythmia, CVA, and . The patient accepted
these risks and wished to proceed. All questions were answered, and informed consent was obtained.
PROCEDURE IN DETAIL: The patient was identified in the preoperative holding area. The left hip was identified as the operative site. The patient was taken in the operating room and transferred to the operative table. Spinal anesthesia was performed.
IV antibiotics and tranexamic acid were administered. The patient was placed in the lateral position with Stulberg hip positioners. Axillary roll was placed. The down leg was well padded. All bony prominences were well padded. The operative limb was
prepped and draped in the usual sterile fashion.
Time out was performed. A posterolateral approach to the hip was used. The skin incision was centered over the greater trochanter. This was taken down sharply through subcutaneous tissues. Meticulous hemostasis was achieved throughout the case with
electrocautery. We split the fascia lang in line with skin incision. I split the gluteus reginaldo bluntly. We cauterized all crossing vessels as we split it. I palpated the sciatic nerve and made sure it was well posterior in the operative field. It
was protected throughout the case.
I performed a partial bursectomy to identify the short external rotators. The gluteus medius and minimus were identified and retracted anteriorly. I incised the piriformis tendon and conjoint tendon at their insertions. These were tagged for later
repair. I then performed a trapezoidal capsulotomy. The edges were tagged for later repair. I referenced the cut edge of the capsular flap to 2 fixed points on the greater trochanter for assistance with recreation of limb length and offset. I then
dislocated the hip posteriorly. I performed a femoral neck osteotomy approximately 10 mm above the lesser trochanter, as per preoperative templating. The distance between the lesser trochanter and center of the femoral head was measured to be
37.5mm. The femoral head measured 49 mm in outer diameter. I placed a curve hohmann retractor over the anterior lip of the acetabulum between the labrum and the anterior hip capsule. A second retractor was placed inferiorly just distal to the
transverse acetabular ligament. Circumferential view of the acetabulum was achieved. I incised the labrum and pulvinar with electrocautery. I started with a 49 mm reamer and reamed down to the medial wall. I then sequentially reamed up to a 53mm
reamer. This gave a nice bed of bleeding bone with excellent column support anteriorly and posteriorly. I impacted the acetabular shell in approximately 40 degrees of abduction and 20 degrees of anteversion. I matched the anteversion of the
transverse acetabular ligament. I also made sure that the anterior rim of the socket was not proud of the anterior wall to minimize the chance of iliopsoas tendinitis. I confirmed the cup was well-seated. I then impacted a neutral liner and
confirmed it was well seated with the locking mechanism.
Attention was turned to the femur. Box osteotome and Charnley awe were used to open the canal. The femur was sequentially broached to size 12 which had appropriate fit and fill. A trial head was placed with standard offset neck and the hip was
reduced. Leg length and offset were checked and found to be appropriate. The hip was taken through complete range of motion and found to be stable in extension, the position of sleep, and at 90 degrees of flexion and internal rotation.
Trials were removed and the femoral canal was prepared with irrigation and ribbon gauze packing sequentially. A cement restrictor was placed into the femoral canal 1cm distal to the tip of the femoral stem. This was measured off the trial femoral
stem. Once the femoral canal was prepared, the cement was mixed. Once doughy in consistency, the cement was pressurized into the canal with a cement gun. The stem was then carefully inserted into the canal with care to minimize rotation or
micromotion. Excess cement was removed. Once the cement was polymerized, the joint was irrigated copiously. The acetabular component was inspected to be free of cement particles and other debris. The final head was impacted onto clean and dry
trunion. Leg length and stability were checked again and found to be appropriate. The sciatic nerve was inspected and noted to be free of tension and uninjured.
A dilute betadine soak was performed for approximately 3 minutes, and then the hip was copiously irrigated. I repaired the capsule, piriformis, and conjoint tendon with #2 Ethibond through drill holes in the greater trochanter. Local anesthetic was
injected. The fascia lang was closed with #1 PDS in running fashion. The subcutaneous tissues were closed with 2-0 PDS in running fashion. The skin was reapproximated with 3-0 Monocryl subcuticular suture. I placed a Prineo dressing followed by a
Mepilex Ag dressing. The patient awoke from anesthesia without difficulty. Leg lengths were checked on the hospital bed and noted to be equal. Sponge and instrument counts were correct x2 at the end of the case.
I was present and participated in the entire procedure. The patient was sent to the recovery room in stable condition.
Emiliano Willingham MD
[2023-11-19] MEDS: COLACE 100 MG PO (20:10)
[2023-11-19] MEDS: CARDIZEM CD 120 MG PO (20:10)
[2023-11-19] MEDS: SENOKOT 17.2 MG PO (20:10)
[2023-11-19] MEDS: FLORASTOR 250 MG PO (20:10)
[2023-11-19] MEDS: DECADRON 4 MG PO (20:10)
[2023-11-19] MEDS: BETAPACE 80 MG PO (20:10)
[2023-11-19] MEDS: MIRALAX PO (20:11)
[2023-11-19] MEDS: BACTROBAN 2% OINTMENT 1 APPLIC NASAL (20:11)
[2023-11-19] MEDS: LIDOCAINE 4% PATCH 2 PATCH TOPICAL (20:12)
[2023-11-19] MEDS: NEURONTIN PO (20:24)
[2023-11-19] MEDS: COUMADIN 5 MG PO (22:27)
[2023-11-19] MEDS: NEURONTIN 100 MG PO (22:27)
[2023-11-19] MEDS: ANCEF 5 IV (22:28)
[2023-11-19] MEDS: FLEXERIL 5 MG PO (22:28)
[2023-11-19] MEDS: ROXICODONE 5 MG PO (22:33)
[2023-11-20] VITALS (8 sets, daily range): BP systolic 104–139; BP diastolic 56–75; PULSE 101; O2SAT 98
[2023-11-20] MEDS: TYLENOL 650 MG PO ×6 (00:26→21:01)
[2023-11-20 04:59] LABS: INR 1.15; PT 14.8 Sec (11.4-14.6)
[2023-11-20] MEDS: QUESTRAN 4 GRAM PO ×3 (05:33→17:23)
[2023-11-20] MEDS: ANCEF 5 IV (05:33)
[2023-11-20] MEDS: ROXICODONE 2.5 MG PO ×2 (06:38→09:23)
--- NOTE | 2023-11-20 09:03 | W.PN.ORTHO ---
Today's Communication / Plan
-
Monitor pain.
Work w/ PT and OT today.
Will likely need SNF upon d/c (did so after R JAILENE). D/c pending bed availability.
Assessment
.
Distal Motor Intact: Yes
Dressing:
Clean, dry and intact.
Assessment:
L hip OA s/p L JAILENE w/ Dr Willingham 11/19/23
- s/p R JAILENE w/ Dr Willingham 07/29/23
DVT prophylaxis - Warfarin, b/l venous foot pumps
- No need for Lovenox bridge per Cardio
HTN - + parameters - monitor BP
Persistent atrial fibrillation and atypical atrial flutter, status post IDALIA-guided cardioversion, 06/2022, and pulmonary vein isolation 09/2022
Left anterior fascicular block
- Monitor on tele
- Continue Sotalol and Diltiazem
- Resume Warfarin
Exercise-induced asthma
COPD
Pulmonary nodules
Invasive adenocarcinoma of lung, 2019, status post left upper lobectomy, lymph node biopsy, and chemotherapy
Chronic dyspnea on exertion due to recent deconditioning
- O2 stable on RA w/ IS
Chronic constipation - add daily Miralax to bowel regimen of Colace and Senna
Cognitive deficits - minimize opioids as able
Balance difficulties and ambulatory dysfunction - on fall precautions
Subclinical hyperthyroidism - TSH to be monitored outpatient
Overactive bladder - Detrol LA in place of Gemtesa (ADR to Oxybutynin - confusion)
Recurrent hyponatremia, improving after recent hypertonic saline, fluid restriction, and discontinuation of Lexapro - continue 60 oz fluid restriction
Hyperlipidemia
Carotid stenosis, status post right carotid endarterectomy, 07/2019, and left carotid endarterectomy 01/2020
Peripheral vascular disease
Mild to moderate mitral regurgitation
Mild tricuspid regurgitation
Mild mitral stenosis
Left atrial appendage thrombus, 05/2022, treated with Coumadin
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
Collagenous colitis
Colon polyps
Diverticulosis
Nephrolithiasis, non-obstructive
Hepatic cysts
Bilateral renal cysts
Hemorrhoids
Vertigo
Multilevel degenerative disc disease
Kyphosis
History of recurrent UTIs
Herpes zoster, 04/21/2023, resolved with Valacyclovir
Depression
Anxiety
Hearing impairment bilaterally
Remote history of tobacco abuse
Plan
.
Surgery / Date: L hip OA s/p L JAILENE w/ Dr Willingham 11/19/23
DVT Prophylaxis: Coumadin
Activity:
Out of bed.
PT/OT
Discharge Plan: SNF
Subjective
.
.:
Patient resting comfortably in bed.
Voiced concerns re: L hip pain mgmt w/ upcoming therapy today - meds tweaked.
Denies any other new significant complaints.
Vital Signs and Labs
.
Vital Signs and Labs:
Lab Results
11/06/23 14:01
11/06/23 14:01
Temp Pulse Resp BP Pulse Ox
98.5 F 73 18 104/75 97
11/20/23 07:54 11/20/23 07:54 11/20/23 07:54 11/20/23 07:54 11/20/23 07:54
PT 14.8 Sec (11.4-14.6) H 11/20/23 04:42
INR 1.15 11/20/23 04:42
Physical Exam
-
HEENT: No pallor, cyanosis, or jaundice. Throat clear.
NECK: Supple. No JVD.
RESPIRATORY: Lungs clear to auscultation.
CVS: S1, S2 normal. RRR.�
ABDOMEN: Soft, non-tender. No distension.
EXTREMITIES: Strength equal, no calf pain with palpation/dorsiflexion. Calves soft.
PREPARATION PLANT SUPERVISOR: AOx3. No focal deficits. harvest worker grossly intact
[2023-11-20] MEDS: FLORASTOR 250 MG PO (09:26)
[2023-11-20] MEDS: BETAPACE PO (09:26)
[2023-11-20] MEDS: COLACE 100 MG PO ×2 (09:27→21:02)
[2023-11-20] MEDS: DETROL LA 4 MG PO (09:27)
[2023-11-20] MEDS: NEURONTIN 100 MG PO ×3 (09:27→21:03)
[2023-11-20] MEDS: DECADRON 4 MG PO ×2 (09:27→21:01)
[2023-11-20] MEDS: SENOKOT 17.2 MG PO (09:27)
[2023-11-20] MEDS: MIRALAX 17 GRAMS PO (09:28)
[2023-11-20] MEDS: BACTROBAN 2% OINTMENT 1 APPLIC NASAL ×2 (09:28→21:00)
--- NOTE | 2023-11-20 11:39 | CM ---
Addendum entered by Carolyn Zapata 11/20/23 14:34:
[facility], [facility] - no beds at this time
Pt made aware and given list of additional facilities
Referrals sent in Care Port
Plan - SNF when bed obtained and medically ready
Original Note:
Met with pt at bedside
Pt reports she currently lives at [facility]
At baseline adl's with assist, uses wheel chair, working on ambulation in PT per pt. Meals provided - feeds self
DME - wheel chair, rolling walker, commode, shower chair, shower rails
SNF - [facility] in past
HH - denies past hx
PCP - Janet Prabhakar
Pharm - [facility]
Discussed PT/OT recs - SNF
Pt open to rehab - prefers [facility], [facility], [facility]
Will send referral in Care Port
Will need auth
Pt reports she plans to move to [facility] - unhappy with care per pt at [facility]
Plan - SNF when bed obtained and medically ready
[2023-11-20] MEDS: ROXICODONE 5 MG PO (13:27)
[2023-11-20] MEDS: COUMADIN 7.5 MG PO (17:25)
[2023-11-20] MEDS: BETAPACE 80 MG PO (21:00)
[2023-11-20] MEDS: CARDIZEM CD 120 MG PO (21:01)
[2023-11-20] MEDS: SENOKOT PO (21:03)
[2023-11-20] MEDS: FLEXERIL 5 MG PO (21:03)
[2023-11-21] VITALS (8 sets, daily range): BP systolic 100–144; BP diastolic 53–84; PULSE 103; O2SAT 97
[2023-11-21] MEDS: TYLENOL 650 MG PO ×6 (01:15→21:42)
[2023-11-21] MEDS: QUESTRAN 4 GRAM PO ×3 (06:02→18:03)
[2023-11-21 06:06] LABS: INR 1.44; PT 17.4 Sec (11.4-14.6)
[2023-11-21] MEDS: BETAPACE 80 MG PO ×2 (08:58→21:40)
[2023-11-21] MEDS: DETROL LA 4 MG PO (08:59)
[2023-11-21] MEDS: NEURONTIN 100 MG PO ×3 (08:59→21:39)
[2023-11-21] MEDS: COLACE 100 MG PO ×2 (08:59→21:38)
[2023-11-21] MEDS: FLORASTOR 250 MG PO (09:03)
[2023-11-21] MEDS: LIDOCAINE 4% PATCH 2 PATCH TOPICAL (09:04)
[2023-11-21] MEDS: DECADRON 4 MG PO ×2 (09:04→21:38)
[2023-11-21] MEDS: MIRALAX 17 GRAMS PO (09:05)
[2023-11-21] MEDS: SENOKOT 17.2 MG PO ×2 (09:06→21:38)
[2023-11-21] MEDS: ROXICODONE 5 MG PO (09:16)
--- NOTE | 2023-11-21 09:46 | W.PN.ORTHO ---
Today's Communication / Plan
-
POD #2 s/p left JAILENE
-PT/OT to tolerance. THPs.
-Pain control.
-Appreciate case management efforts in d/c planning. Waiting for available beds for d/c.
-Will continue to follow along.
Assessment
.
Distal Motor Intact: Yes
Dressing:
Clean, dry and intact.
Assessment:
Distal Motor Intact: Yes
Dressing:
Clean, dry and intact.
Assessment:
L hip OA s/p L JAILENE w/ Dr Willingham 11/19/23
- s/p R JAILENE w/ Dr Willingham 07/29/23
DVT prophylaxis - Warfarin, b/l venous foot pumps
- No need for Lovenox bridge per Cardio
HTN - + parameters - monitor BP
Persistent atrial fibrillation and atypical atrial flutter, status post IDALIA-guided cardioversion, 06/2022, and pulmonary vein isolation 09/2022
Left anterior fascicular block
- Monitor on tele
- Continue Sotalol and Diltiazem
- Resume Warfarin
Exercise-induced asthma
COPD
Pulmonary nodules
Invasive adenocarcinoma of lung, 2019, status post left upper lobectomy, lymph node biopsy, and chemotherapy
Chronic dyspnea on exertion due to recent deconditioning
- O2 stable on RA w/ IS
Chronic constipation - add daily Miralax to bowel regimen of Colace and Senna
Cognitive deficits - minimize opioids as able
Balance difficulties and ambulatory dysfunction - on fall precautions
Subclinical hyperthyroidism - TSH to be monitored outpatient
Overactive bladder - Detrol LA in place of Gemtesa (ADR to Oxybutynin - confusion)
Recurrent hyponatremia, improving after recent hypertonic saline, fluid restriction, and discontinuation of Lexapro - continue 60 oz fluid restriction
Hyperlipidemia
Carotid stenosis, status post right carotid endarterectomy, 07/2019, and left carotid endarterectomy 01/2020
Peripheral vascular disease
Mild to moderate mitral regurgitation
Mild tricuspid regurgitation
Mild mitral stenosis
Left atrial appendage thrombus, 05/2022, treated with Coumadin
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
Collagenous colitis
Colon polyps
Diverticulosis
Nephrolithiasis, non-obstructive
Hepatic cysts
Bilateral renal cysts
Hemorrhoids
Vertigo
Multilevel degenerative disc disease
Kyphosis
History of recurrent UTIs
Herpes zoster, 04/21/2023, resolved with Valacyclovir
Depression
Anxiety
Hearing impairment bilaterally
Remote history of tobacco abuse
Plan
.
Surgery / Date: L hip OA s/p L JAILENE w/ Dr Willingham 11/19/23
DVT Prophylaxis: Coumadin
Activity:
Out of bed.
PT/OT
Discharge Plan: SNF
Subjective
.
.:
Patient getting out of bed on my arrival earlier this morning. Reports PT has been going well and pain has been well controlled. She is currently awaiting SNF placement as her previous choice had no beds available.
Vital Signs and Labs
.
Vital Signs and Labs:
Lab Results
11/06/23 14:01
11/06/23 14:01
Temp Pulse Resp BP Pulse Ox
97.4 F 78 14 143/84 98
11/21/23 07:53 11/21/23 08:58 11/21/23 07:53 11/21/23 08:58 11/21/23 07:53
PT 17.4 Sec (11.4-14.6) H 11/21/23 05:07
INR 1.44 11/21/23 05:07
Non-invasive Hgb result: 12.0
Physical Exam
-
Left hip: Dressing c/d/i. Minimal swelling. Using walker to ambulate. Calf soft and non tender. N/v intact distally
[2023-11-21] MEDS: COUMADIN 5 MG PO (17:24)
[2023-11-21] MEDS: CARDIZEM CD 120 MG PO (21:38)
[2023-11-21] MEDS: FLEXERIL 5 MG PO (21:38)
[2023-11-22] VITALS (8 sets, daily range): BP systolic 112–140; BP diastolic 55–74; PULSE 63–76; O2SAT 96
[2023-11-22] MEDS: TYLENOL PO (00:36)
[2023-11-22] MEDS: TYLENOL 650 MG PO ×5 (04:34→21:08)
[2023-11-22 05:39] LABS: INR 1.94
--- NOTE | 2023-11-22 08:15 | W.PN.ORTHO ---
Today's Communication / Plan
-
POD #3 s/p left JAILENE
-PT/OT to tolerance. THPs.
-Pain control.
-Coumadin for dvt prophylaxis. INR 1.94 today.
-Appreciate case management efforts in d/c planning. Still waiting available bed at SNF.
-Will continue to follow.
Assessment
.
Dressing:
Clean, dry and intact.
Assessment:
Assessment:
Distal Motor Intact: Yes
Dressing:
Clean, dry and intact.
Assessment:
L hip OA s/p L JAILENE w/ Dr Willingham 11/19/23
- s/p R JAILENE w/ Dr Willingham 07/29/23
DVT prophylaxis - Warfarin, b/l venous foot pumps
- No need for Lovenox bridge per Cardio
-INR 1.94
HTN - + parameters - monitor BP
Persistent atrial fibrillation and atypical atrial flutter, status post IDALIA-guided cardioversion, 06/2022, and pulmonary vein isolation 09/2022
Left anterior fascicular block
- Monitor on tele
- Continue Sotalol and Diltiazem
- Resume Warfarin
Exercise-induced asthma
COPD
Pulmonary nodules
Invasive adenocarcinoma of lung, 2019, status post left upper lobectomy, lymph node biopsy, and chemotherapy
Chronic dyspnea on exertion due to recent deconditioning
- O2 stable on RA w/ IS
Chronic constipation - add daily Miralax to bowel regimen of Colace and Senna
Cognitive deficits - minimize opioids as able
Balance difficulties and ambulatory dysfunction - on fall precautions
Subclinical hyperthyroidism - TSH to be monitored outpatient
Overactive bladder - Detrol LA in place of Gemtesa (ADR to Oxybutynin - confusion)
Recurrent hyponatremia, improving after recent hypertonic saline, fluid restriction, and discontinuation of Lexapro - continue 60 oz fluid restriction
Hyperlipidemia
Carotid stenosis, status post right carotid endarterectomy, 07/2019, and left carotid endarterectomy 01/2020
Peripheral vascular disease
Mild to moderate mitral regurgitation
Mild tricuspid regurgitation
Mild mitral stenosis
Left atrial appendage thrombus, 05/2022, treated with Coumadin
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
Collagenous colitis
Colon polyps
Diverticulosis
Nephrolithiasis, non-obstructive
Hepatic cysts
Bilateral renal cysts
Hemorrhoids
Vertigo
Multilevel degenerative disc disease
Kyphosis
History of recurrent UTIs
Herpes zoster, 04/21/2023, resolved with Valacyclovir
Depression
Anxiety
Hearing impairment bilaterally
Remote history of tobacco abuse
Plan
.
Surgery / Date: L hip OA s/p L JAILENE w/ Dr Willingham 11/19/23
Activity:
Out of bed.
PT/OT
Discharge Plan: [facility]
Subjective
.
.:
Patient resting comfortably in bed. Reports her pain has been well controlled with oxycodone prior to PT. She is anxious to get up and moving. D/c pending availability at [facility].
Vital Signs and Labs
.
Vital Signs and Labs:
Lab Results
11/06/23 14:01
11/06/23 14:01
Temp Pulse Resp BP Pulse Ox
97.4 F 58 14 140/64 96
11/22/23 07:57 11/22/23 07:57 11/22/23 07:57 11/22/23 07:57 11/22/23 07:57
PT 22.0 Sec (11.4-14.6) H 11/22/23 04:33
INR 1.94 11/22/23 04:33
Non-invasive Hgb result: 10.8
Physical Exam
-
Left hip: mepilex dressing is c/d/i. No drainage. Mild swelling. Gentle ROM without pain. Calf soft and non tender to palpation. N/v intact distally.
[2023-11-22] MEDS: LIDOCAINE 4% PATCH 2 PATCH TOPICAL (09:16)
[2023-11-22] MEDS: QUESTRAN 4 GRAM PO ×3 (09:16→16:50)
[2023-11-22] MEDS: NEURONTIN 100 MG PO ×3 (09:17→21:08)
[2023-11-22] MEDS: BETAPACE 80 MG PO ×2 (09:17→21:08)
[2023-11-22] MEDS: DECADRON 4 MG PO (09:17)
[2023-11-22] MEDS: FLORASTOR 250 MG PO (09:18)
[2023-11-22] MEDS: COLACE 100 MG PO ×2 (09:18→21:09)
[2023-11-22] MEDS: SENOKOT 17.2 MG PO ×2 (09:18→21:09)
[2023-11-22] MEDS: DETROL LA 4 MG PO (09:18)
[2023-11-22] MEDS: MIRALAX 17 GRAMS PO (09:18)
[2023-11-22] MEDS: ROXICODONE 5 MG PO (09:25)
--- NOTE | 2023-11-22 11:18 | CM ---
Case management following for discharge planning
Discussed accepting facility's with pt - [facility] and [facility]
Pt prefers [facility]
Spoke with Zeferino at [facility] - requested updates be sent in Care Port - will respond in Care Port
CM will follow for acceptance
Will need auth
Plan - SNF when bed obtained
[2023-11-22] MEDS: COUMADIN 5 MG PO (16:49)
[2023-11-22] MEDS: FLEXERIL 5 MG PO (21:08)
[2023-11-22] MEDS: CARDIZEM CD 120 MG PO (21:08)
[2023-11-22] MEDS: ESTRACE 0.01% VAGINAL CREAM 1 APPLIC VAG (21:10)
[2023-11-23] VITALS (8 sets, daily range): BP systolic 93–167; BP diastolic 49–84; PULSE 61–62; O2SAT 98–99
[2023-11-23] MEDS: TYLENOL PO (00:38)
[2023-11-23] MEDS: TYLENOL 650 MG PO ×5 (03:38→19:49)
[2023-11-23 06:24] LABS: PT 21.6 Sec (11.4-14.6)
[2023-11-23] MEDS: QUESTRAN 4 GRAM PO ×3 (08:45→17:18)
[2023-11-23] MEDS: FLORASTOR 250 MG PO (08:46)
[2023-11-23] MEDS: DETROL LA 4 MG PO (08:46)
[2023-11-23] MEDS: BETAPACE 80 MG PO ×2 (08:46→19:50)
[2023-11-23] MEDS: SENOKOT 17.2 MG PO ×2 (08:46→19:49)
[2023-11-23] MEDS: COLACE 100 MG PO ×2 (08:47→19:49)
[2023-11-23] MEDS: LIDOCAINE 4% PATCH 2 PATCH TOPICAL (08:47)
[2023-11-23] MEDS: NEURONTIN 100 MG PO ×3 (08:47→21:21)
[2023-11-23] MEDS: MIRALAX 17 GRAMS PO (08:47)
[2023-11-23] MEDS: ROXICODONE 5 MG PO (08:53)
--- NOTE | 2023-11-23 08:55 | W.PN.ORTHO ---
Today's Communication / Plan
-
Medically stable for d/c. Awaiting SNF bed placement.
Assessment
.
Distal Motor Intact: Yes
Dressing:
Clean, dry and intact.
Assessment:
L hip OA s/p L JAILENE w/ Dr Willingham 11/19/23
- s/p R JAILENE w/ Dr Willingham 07/29/23
DVT prophylaxis - Warfarin, b/l venous foot pumps
- No need for Lovenox bridge per Cardio
HTN - + parameters - BPs stable
Persistent atrial fibrillation and atypical atrial flutter, status post IDALIA-guided cardioversion, 06/2022, and pulmonary vein isolation 09/2022
Left anterior fascicular block
- Rhythm stable on tele
- Continue Sotalol and Diltiazem
- Resumed Warfarin
Exercise-induced asthma
COPD
Pulmonary nodules
Invasive adenocarcinoma of lung, 2019, status post left upper lobectomy, lymph node biopsy, and chemotherapy
Chronic dyspnea on exertion due to recent deconditioning
- O2 stable on RA w/ IS
Chronic constipation - continue daily Miralax with bowel regimen of Colace and Senna
Cognitive deficits - minimize opioids as able
Balance difficulties and ambulatory dysfunction - on fall precautions
Subclinical hyperthyroidism - TSH to be monitored outpatient
Overactive bladder - Detrol LA in place of Gemtesa (ADR to Oxybutynin - confusion)
Recurrent hyponatremia, improving after recent hypertonic saline, fluid restriction, and discontinuation of Lexapro - continue 60 oz fluid restriction
Hyperlipidemia
Carotid stenosis, status post right carotid endarterectomy, 07/2019, and left carotid endarterectomy 01/2020
Peripheral vascular disease
Mild to moderate mitral regurgitation
Mild tricuspid regurgitation
Mild mitral stenosis
Left atrial appendage thrombus, 05/2022, treated with Coumadin
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
Collagenous colitis
Colon polyps
Diverticulosis
Nephrolithiasis, non-obstructive
Hepatic cysts
Bilateral renal cysts
Hemorrhoids
Vertigo
Multilevel degenerative disc disease
Kyphosis
History of recurrent UTIs
Herpes zoster, 04/21/2023, resolved with Valacyclovir
Depression
Anxiety
Hearing impairment bilaterally
Remote history of tobacco abuse
Plan
.
Surgery / Date: L hip OA s/p L JAILENE w/ Dr Willingham 11/19/23
DVT Prophylaxis: Coumadin
Activity:
Out of bed.
PT/OT
Discharge Plan: SNF
Subjective
.
.:
Patient resting comfortably in her chair.
L hip pain well controlled w/ current pain med regimen.
Denies any new significant complaints.
Eager for potential d/c today.
Vital Signs and Labs
.
Vital Signs and Labs:
Lab Results
11/06/23 14:01
11/06/23 14:01
Temp Pulse Resp BP Pulse Ox
97.8 F 67 16 152/84 97
11/23/23 07:29 11/23/23 08:46 11/23/23 07:29 11/23/23 07:29 11/23/23 07:29
PT 21.6 Sec (11.4-14.6) H 11/23/23 04:29
INR 1.90 11/23/23 04:29
Non-invasive Hgb result: 11.0
Physical Exam
-
HEENT: No pallor, cyanosis, or jaundice. Throat clear.
NECK: Supple. No JVD.
RESPIRATORY: Lungs clear to auscultation.
CVS: S1, S2 normal. RRR.
ABDOMEN: Soft, non-tender. No distension.
EXTREMITIES: Strength equal, no calf pain with palpation/dorsiflexion. Calves soft.
MICA MINER: AOx3. No focal deficits. life skills specialist grossly intact
--- NOTE | 2023-11-23 14:36 | CM ---
CM review pt with ortho Hazel, medically ready for d/c.
Bedside meeting w/ pt to review SNF. Pt confirmed [facility] in [place].
[facility] auth initiated w/ [facility]. Clinicals faxed. Auth pending.
IMM reviewed verbally, copy provided to pt.
Pending ref # [id number]

Plan: SNF pending auth
[2023-11-23] MEDS: COUMADIN 5 MG PO (17:18)
[2023-11-23] MEDS: CARDIZEM CD 120 MG PO (19:50)
[2023-11-23] MEDS: FLEXERIL 5 MG PO (21:21)
[2023-11-24] MEDS: TYLENOL PO (00:26)
[2023-11-24] MEDS: TYLENOL 650 MG PO ×3 (03:42→11:08)
[2023-11-24 04:13] VITALS: BP 136/54
[2023-11-24 06:32] LABS: INR 2.04; PT 22.9 Sec (11.4-14.6)
[2023-11-24 07:15] VITALS: BP 156/68
--- NOTE | 2023-11-24 08:39 | W.PN.ORTHO ---
Today's Communication / Plan
-
D/c today since clinically stable, bed available at SNF.
Assessment
.
Distal Motor Intact: Yes
Dressing:
Clean, dry and intact.
Assessment:
L hip OA s/p L JAILENE w/ Dr Willingham 11/19/23
- s/p R JAILENE w/ Dr Willingham 07/29/23
DVT prophylaxis - Warfarin, b/l venous foot pumps
- No need for Lovenox bridge per Cardio
HTN - + parameters - BPs stable
Persistent atrial fibrillation and atypical atrial flutter, status post IDALIA-guided cardioversion, 06/2022, and pulmonary vein isolation 09/2022
Left anterior fascicular block
- Rhythm stable on tele
- Continue Sotalol and Diltiazem
- Resumed Warfarin
Exercise-induced asthma
COPD
Pulmonary nodules
Invasive adenocarcinoma of lung, 2019, status post left upper lobectomy, lymph node biopsy, and chemotherapy
Chronic dyspnea on exertion due to recent deconditioning
- O2 stable on RA w/ IS
Chronic constipation - continue daily Miralax with bowel regimen of Colace and Senna
Cognitive deficits - continue to minimize opioids as able
Balance difficulties and ambulatory dysfunction - on fall precautions
Subclinical hyperthyroidism - TSH to be monitored outpatient
Overactive bladder - Detrol LA in place of Gemtesa while inpatient (ADR to Oxybutynin - confusion)
Recurrent hyponatremia, improving after recent hypertonic saline, fluid restriction, and discontinuation of Lexapro - continue 60 oz fluid restriction
Hyperlipidemia
Carotid stenosis, status post right carotid endarterectomy, 07/2019, and left carotid endarterectomy 01/2020
Peripheral vascular disease
Mild to moderate mitral regurgitation
Mild tricuspid regurgitation
Mild mitral stenosis
Left atrial appendage thrombus, 05/2022, treated with Coumadin
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
Collagenous colitis
Colon polyps
Diverticulosis
Nephrolithiasis, non-obstructive
Hepatic cysts
Bilateral renal cysts
Hemorrhoids
Vertigo
Multilevel degenerative disc disease
Kyphosis
History of recurrent UTIs
Herpes zoster, 04/21/2023, resolved with Valacyclovir
Depression
Anxiety
Hearing impairment bilaterally
Remote history of tobacco abuse
Plan
.
Surgery / Date: L hip OA s/p L JAILENE w/ Dr Willingham 11/19/23
DVT Prophylaxis: Coumadin
Activity:
Out of bed.
PT/OT
Discharge Plan: SNF
Subjective
.
.:
Patient resting comfortably in her chair.
No changes since yesterday.
Eager for potential SNF d/c today.
Vital Signs and Labs
.
Vital Signs and Labs:
Lab Results
11/06/23 14:01
11/06/23 14:01
Temp Pulse Resp BP Pulse Ox
98.0 F 57 18 156/68 96
11/24/23 07:15 11/24/23 07:15 11/24/23 07:15 11/24/23 07:15 11/24/23 07:15
PT 22.9 Sec (11.4-14.6) H 11/24/23 04:38
INR 2.04 11/24/23 04:38
Non-invasive Hgb result: 10.9
Physical Exam
-
HEENT: No pallor, cyanosis, or jaundice. Throat clear.
NECK: Supple. No JVD.
RESPIRATORY: Lungs clear to auscultation.
CVS: S1, S2 normal. RRR.
ABDOMEN: Soft, non-tender. No distension.
EXTREMITIES: Strength equal, no calf pain with palpation/dorsiflexion. Calves soft.
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 No focal deficits. general practitioner grossly intact
--- NOTE | 2023-11-24 08:41 | W.DS.TRANS ---
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
-
Discharge Instructions:
Sleep Apnea Risk Low
Discharge Diagnosis/Procedures L hip OA s/p L JAILENE w/ Dr Willingham 11/19/23
Diet Regular
Activity As tolerated,With Walker
Driving Restrictions No driving
Bathing Restrictions OK to Shower
Blood Work PT/INR on 11/26/2023 w/ results to Cardiology (
Dr. Chris Sanchez). Script, if needed, was
provided upon discharge.
Other Services PT,OT
Wound Care Leave dressing on until seen by your surgeon's
office for follow-up in 2 weeks.
Instructions:
Stand-Alone Forms: Total Hip/Knee Replacement D/C
Changes to Home Medications: Yes
Discharge Medications:
DC Medications w/original date entered in [employer]
warfarin 5 mg tablet 7.5 mg PO THFR Blood Clot Prevention/Tx 07/10/22
diltiazem HCl 120 mg capsule,extended release 24 hr 120 mg PO DAILY@1999 Heart Disease/Condition 01/16/23
sotalol 80 mg tablet 80 mg PO Q12H Arrhythmia 01/16/23
estradiol 0.01% (0.1 mg/gram) vaginal cream 1 g vaginal SUWE@1999 Hormonal Agent 07/01/23
cholestyramine-aspartame 4 gram oral powder (Cholestyramine Light) 4 g PO TID Gastrointestinal Issue 07/07/23
cyclobenzaprine 5 mg tablet 5 mg PO HS Muscle Spasms 07/07/23
sennosides 8.6 mg tablet (Senna Laxative) 17.2 mg (2 x 8.6 mg) PO BID #30 tabs 07/30/23
warfarin 5 mg tablet 5 mg PO SUMOTUWESA Blood Clot Prevention/Tx 11/16/23
acetaminophen 500 mg tablet 1,000 mg (2 x 500 mg) PO Q6H #60 tabs 11/20/23
dexamethasone 4 mg tablet 4 mg PO BID Anti-inflammatory #7 tabs 11/20/23
docusate sodium 100 mg capsule 100 mg PO BID #30 caps 11/20/23
gabapentin 100 mg capsule 100 mg PO TID neuropathic pain #30 caps 11/20/23
lidocaine 4 % topical patch 2 patch topical DAILY #30 ea 11/20/23
oxycodone 5 mg tablet 2.5 - 5 mg (0.5 - 1 x 5 mg) PO Q6H PRN moderate-severe pain #20 tabs 11/20/23
prochlorperazine maleate 5 mg tablet 5 mg PO Q8H PRN nausea/vomiting #30 tabs 11/20/23
psyllium husk 3.4 gram/5.4 gram oral powder (Metamucil) 2 tbsp PO DAILY Constipation #0 grams 11/20/23
vibegron 75 mg tablet (Gemtesa) 75 mg PO DAILY Urinary Issue #0 tabs 11/20/23
Home Medication Changes
acetaminophen 500 mg tablet 1,000 mg (2 x 500 mg) PO Q6H #60 tabs 11/20/23
dexamethasone 4 mg tablet 4 mg PO BID Anti-inflammatory #7 tabs 11/20/23
docusate sodium 100 mg capsule 100 mg PO BID #30 caps 11/20/23
gabapentin 100 mg capsule 100 mg PO TID neuropathic pain #30 caps 11/20/23
lidocaine 4 % topical patch 2 patch topical DAILY #30 ea 11/20/23
oxycodone 5 mg tablet 2.5 - 5 mg (0.5 - 1 x 5 mg) PO Q6H PRN moderate-severe pain #20 tabs 11/20/23
prochlorperazine maleate 5 mg tablet 5 mg PO Q8H PRN nausea/vomiting #30 tabs 11/20/23
Pending Results: No
[2023-11-24 08:44] VITALS: BP 174/85
[2023-11-24] MEDS: SENOKOT 17.2 MG PO (08:45)
[2023-11-24] MEDS: FLORASTOR 250 MG PO (08:45)
[2023-11-24] MEDS: DETROL LA 4 MG PO (08:45)
[2023-11-24] MEDS: NEURONTIN 100 MG PO (08:45)
[2023-11-24] MEDS: LIDOCAINE 4% PATCH 2 PATCH TOPICAL (08:46)
[2023-11-24] MEDS: COLACE 100 MG PO (08:46)
[2023-11-24] MEDS: MIRALAX 17 GRAMS PO (08:49)
[2023-11-24] MEDS: BETAPACE 80 MG PO (08:59)
[2023-11-24] MEDS: ROXICODONE 5 MG PO ×2 (09:02→13:39)
--- NOTE | 2023-11-24 10:37 | CM ---
Addendum entered by Thea Bruno 11/24/23 11:06:
Per air conditioning unit tester, BLS transport scheduled for 2 pm.
Pt made aware transport time. Pt will notify niece who will possibly follow ambulance to SNF with pt's belongings.
Nurse notified of transport time and d/c plan.
Original Note:
CM reviewed pt with [facility], pt is medically cleared. SNF bed confirmed w/ [facility]. [facility] auth approved for SNF.
Transportation forms provided to air conditioning unit tester to set up BLS transport. Awaiting time
IMM completed yesterday
Bedside update to pt, pt agreeable to SNF.
Report # [phone].
Plan: SNF, [facility] via ambulance
[2023-11-24 11:38] VITALS: BP 147/77
--- NOTE | 2023-11-24 11:56 | PTCARENOTE ---
This RN called report and spoke to Maty from [facility] at [phone]
[2023-11-24] MEDS: QUESTRAN 4 GRAM PO (12:51)
[2023-11-24] MEDS: QUESTRAN PO (12:51)
== END 2023-11-24 14:08 | DRG 470 ==
LOC: 2 SOUTH 13:01
PROVIDERS: Physician Assistant; ADMITTING PHYSICIAN Orthopaedic Surgery; FAMILY PHYSICIAN Nurse Practitioner Family; REFERRING PHYSICIAN Internal Medicine
PROC: 0SRB049 Replacement of Left Hip Joint with Ceramic on Polyethylene Synthetic Substitute, Cemented, Open Approach (ICD-10-PCS; 2023-11-19)
DX: M16.12 Unilateral primary osteoarthritis, left hip (principal); I48.19 Other persistent atrial fibrillation; I48.4 Atypical atrial flutter; E87.1 Hypo-osmolality and hyponatremia; I10 Essential (primary) hypertension; J45.990 Exercise induced bronchospasm; J44.89 Other specified chronic obstructive pulmonary disease; K59.09 Other constipation; I44.4 Left anterior fascicular block; I69.320 Aphasia following cerebral infarction; R41.89 Other symptoms and signs involving cognitive functions and awareness; Z90.2 Acquired absence of lung [part of]; Z79.01 Long term (current) use of anticoagulants; Z85.118 Personal history of other malignant neoplasm of bronchus and lung; Z88.2 Allergy status to sulfonamides
CPT/HCPCS: 36415; 73502; 80053; 83036; 85027; 85610; 86850; 86900; 86901; 87070; 97116; 97163; 97167; 97530; 97535; C1713; C1776

== ENCOUNTER → 2024-01-27 13:42 | Outpatient (REF) | payer MEDICARE, SELFPAY | LOC: RAD 13:42 | PROVIDERS: ATTENDING PHYSICIAN Registered Nurse; FAMILY PHYSICIAN Nurse Practitioner Family | DX: I65.23 Occlusion and stenosis of bilateral carotid arteries (principal); I77.1 Stricture of artery | CPT/HCPCS: 93880; 93923; 93930 ==

== ENCOUNTER → 2024-02-23 13:58 | Outpatient (REF) | payer MEDICARE, SELFPAY | LOC: RAD 13:58 | PROVIDERS: ATTENDING PHYSICIAN Podiatrist Primary Podiatric Medicine; FAMILY PHYSICIAN Nurse Practitioner Family | DX: I70.91 Generalized atherosclerosis (principal) | CPT/HCPCS: 93922; 93925 ==

== ENCOUNTER 2024-04-12 10:24 | Day surgery (SDC) | payer MEDICARE, SELFPAY ==
[2024-04-12] VITALS (17 sets, daily range): BP systolic 126–191; BP diastolic 57–86; BMI 27.3; BMI 26.9
[2024-04-12 11:03] LABS: Hematocrit 37.7 % (37.0-47.0); Hemoglobin 12.2 g/dL (12.0-16.0); Mean Corp Hgb Conc. 32.4 g/dL (33.0-37.0); Mean Corpuscular Hgb 31.1 pg (27.0-31.0); Mean Corpuscular Volume 96.2 fL (81.0-99.0); Mean Platelet Volume 9.5 fL (7.4-10.4); Platelet Count 200 10^3/uL (130-400); Red Blood Cell Count 3.92 10^6/uL (4.20-5.40); Red Cell Dist. Width 13.7 % (11.5-14.5)
[2024-04-12 11:13] LABS: APTT 31.8 Sec (23.4-35.0); PT 14.5 Sec (11.4-14.6)
[2024-04-12 11:23] LABS: Blood Urea Nitrogen 15 mg/dl (7-17); Calcium 9.5 mg/dl (8.4-10.2); Carbon Dioxide 19 mmol/L (22-30); Chloride 104 mmol/L (98-107); Estimated Creatinine Clearance 58 ml/min; Glucose 94 mg/dl (70-99); Potassium 4.1 mmol/L (3.5-5.1); Sodium 135 mmol/L (135-145); eGFR > 60.00
[2024-04-12 11:29] LABS: Glucose - Point of Care 80 mg/dl (70-99)
--- NOTE | 2024-04-12 14:27 | W.SUR.PREOP ---
Pre-Operative Surgical Note
-
I have examined this patient prior to the performance of the scheduled procedure.
The patient's condition is unchanged from the time of the current History and
Physical and the patient is able to undergo the scheduled procedure.
--- NOTE | 2024-04-12 17:01 | W.IMMPOSTOP ---
Surgical Immed Post Op Note
-
Primary Surgeon: Cyrus
Assisting Surgeon: Blanca
Pre-op Diagnosis: chronic limb threatening ischemia
Post-op Diagnosis: chronic limb threatening ischemia
Procedure Performed: RLE angiogram, IVL, stent, diagnostic LLE angiogram
Anesthesia Type: Sedation/local
Specimen / Cultures: None
Estimated Blood Loss: 30 cc
Complications: None
Operative Findings: Aorto iliac occlusive disease, stent + IVL in R SFA, diagnostic LLE angiogram
[2024-04-12] MEDS: SUBLIMAZE 25 MCG IV (18:13)
--- NOTE | 2024-04-12 18:27 | OR.RPT ---
Operative Report
Operative Report
Date of Operation: 04/12/2024
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
Procedure:
1.) Intravascular lithotripsy to right superficial femoral artery and popliteal artery (6 mm x 80 mm E8 shockwave balloon)
2.) Balloon angioplasty and drug-eluting stent placement to right superficial femoral artery and popliteal artery (overlapping 6 mm x 140 mm, 6 mm x 140 mm, 6 mm x 80 mm)
3.) Diagnostic aortobiiliac arteriogram
4.) Diagnostic BILATERAL lower extremity arteriogram
5.) Ultrasound-guided percutaneous access to the left common femoral artery
Surgeon: Charles Bridges III, MD
Cancer Registry Coordinator: Boo Rios MD PGY1
Anesthesia: Sedation with local
Fluoroscopy:
57.5 min
353 mGy
78.57 Gy.cm2
Complications: None
Estimated Blood Loss: 50 cc
History and Indications for Procedure: 83-year-old female with peripheral arterial disease and bilateral ischemic rest pain
Procedure in Detail: Lisa Malone was correctly identified and placed supine on the operating table. After adequate induction of anesthesia the bilateral groins were prepped and draped in the usual sterile fashion. A timeout was performed with the
nursing and anesthesia staff confirming the patient's identity as well as the nature and laterality of the procedure.
The left common femoral artery was identified under ultrasound guidance. The artery was patent but calcified. The superior and inferior aspects of the femoral head were identified with radiographic guidance and marked at the skin level. The proposed
puncture site was infiltrated with local anesthesia. Under ultrasound guidance we accessed the left common femoral artery with a micropuncture needle and upsized to a 5 Fr sheath over a Bentson wire. The wire and a ShepherSmart Sparrow hook flush catheter were
advanced into the distal abdominal aorta and a diagnostic aorto-biiliac arteriogram was performed:
AORTO-ILIAC ARTERIOGRAM:
Aorta: Diffusely heavily calcified but patent with no significant stenosis identified
Right common iliac artery: Diffusely calcified. Patent. No significant stenosis identified
Right external iliac artery: Diffusely calcified. Patent. No significant stenosis identified
Left common iliac artery: Diffusely calcified. Patent. No significant stenosis identified
Left external iliac artery: Diffusely calcified. Patent. No significant stenosis identified
Under roadmap guidance using a Glidewire and the Rescale hook catheter we selected the right common iliac artery and then the external iliac artery. A Quickcross catheter was tracked up and over the aortic bifurcation and placed in the distal
external iliac artery. The catheter was quite difficult to track. A diagnostic right lower extremity arteriogram was then performed which demonstrated the following:
RIGHT LOWER EXTREMITY:
Common femoral artery: Patent
Profunda femoral artery: Patent
Superficial femoral artery: Diffusely calcified throughout. Areas of high-grade stenosis identified throughout
Popliteal artery: Heavily calcified plaque at the distal superficial femoral artery/above-knee popliteal artery leading to a segmental occlusion. Reconstitution of the popliteal artery behind the knee was identified
Anterior tibial artery: Patent
Tibioperoneal trunk: Patent
Peroneal artery: Patent
Posterior tibial artery: Patent but diffusely small diameter
ENDOVASCULAR INTERVENTION: Systemic heparin was administered. Exchanged out for a 6 Fr 55 cm sheath over a short floppy tip Amplatz wire. Selected the superficial femoral artery under roadmap guidance with Quickcross catheter and stiff glidewire.
The heavily calcified distal SFA occlusion was crossed with a Quickcross and stiff Glidewire and a subintimal plane. The wire and catheter were advanced into the popliteal artery where we reentered the true lumen and subtraction angio confirmed
proper position in the true lumen. Exchanged out for a 0.014 Mongo wire. A 4 mm angioplasty balloon was placed across the calcified occluded segment under roadmap guidance. The balloon was inflated to nominal pressure and then deflated and removed
over the wire. Due to the heavily calcified nature of the arterial disease and in an effort to modify the calcium to achieve maximum luminal gain with endovascular intervention I elected to proceed with intravascular lithotripsy. A 6 mm x 80 mm E8
shockwave balloon was advanced across the SFA and popliteal artery under roadmap guidance. The balloon was positioned in the popliteal artery behind the knee. Alternating rounds of lithotripsy pulse delivery at sub-nominal pressure and angioplasty
at nominal pressure was performed across the entire superficial femoral artery and above-knee popliteal artery segment focusing energy on the areas of heavily calcified plaque. In between rounds of pulse delivery and angioplasty the balloon was
deflated and repositioned under roadmap guidance. All 400 pulses were delivered.
Subsequent arteriogram demonstrated a significantly improved result but areas of residual stenosis and focal dissection were seen. I treated the above-knee popliteal artery and superficial femoral artery with overlapping drug eluting stents. A 6
mm x 140 mm Zilver PTX stent was positioned in the desired location distally under roadmap guidance and deployed. A 6 mm x 140 mm Zilver PTX stent was positioned and deployed proximal to this with the desired overlap. A 6 mm x 80 mm Zilver PTX was
then positioned and deployed proximal to this with the desired the overlap and extending to the SFA origin. The entire length of stents were profiled with a 6 mm angioplasty balloon. There was an area of residual stenosis in the region of the most
heavily calcified plaque that was treated with a 6 mm x 40 mm high-pressure balloon.
COMPLETION ARTERIOGRAM: Excellent technical result. Brisk flow through right now patent superficial femoral artery and popliteal artery. Mild residual stenosis was present at the area of heavy calcification in the above-knee popliteal artery.
Significantly improved tibial artery runoff via the anterior tibial artery, peroneal artery and posterior tibial artery compared to pretreatment.
Satisfied with this result we concluded the procedure. The sheath tip was pulled back into the left external iliac artery.
A runoff arteriogram was performed of the left lower extremity which demonstrated the following:
RIGHT LOWER EXTREMITY:
Common femoral artery: Patent
Profunda femoral artery: Patent
Superficial femoral artery: Heavy calcified plaque in the proximal SFA near the origin. Heavily calcified throughout. Areas of milder stenosis in the mid to distal artery
Popliteal artery: Heavily calcified. Patent proximally. Bulky calcified plaque behind the knee which results in an occlusion. Below the knee popliteal artery is occluded with a short stump of distal reconstitution just proximal to the anterior
tibial artery takeoff
Anterior tibial artery: Patent. Heavily calcified plaque at the origin and proximal segment. Patent to the distal calf (limit of arteriogram)
Tibioperoneal trunk: Patent but small diameter
Peroneal artery: Patent to the distal calf (limit of arteriogram)
Posterior tibial artery: Occluded
Protamine was administered. The sheath was pulled from the left femoral access and direct manual pressure was held over the puncture site until hemostasis was achieved. A sterile dressing was applied.
The patient tolerated the procedure well and was taken to the recovery area in stable condition.
Attestation: I was present and responsible for the entire procedure.
Signed:
Charles Bridges III, MD
[facility]
[phone] (kmwr)
[2024-04-12] MEDS: NSS 1000 IV (18:31)
--- NOTE | 2024-04-12 18:45 | PTCARENOTE ---
Report taken by this RN from PACU nurse s/p angiogram, report passed onto hospital unit clerk RN Gerald. Patient to be admitted into 2130, to be transported to floor on tele monitor.
--- NOTE | 2024-04-12 19:15 | PTCARENOTE ---
Patient brought up from PACU in bed. Patient AAOX4, able to make needs known. IV flushed and patent. Pedal pulses and left femoral pulse checked all present. Neurovascular checks and vital signs done per order. Patient medicated per APR. Assessment
documented in flowsheet.
--- NOTE | 2024-04-12 20:38 | SUR.PHASEI ---
patient understands she needs to keep legs straight for 6 hours until 2315 tonight. Head of bed elevated to 30degrees at 1915 on transfer to floor and given dinner tray. understands restrictions, hand off at bedside to [address] [place] [address] RN
[2024-04-12] MEDS: HEPARIN 5000 UNITS SC (21:20)
[2024-04-12] MEDS: QUESTRAN 4 GRAM PO (21:20)
[2024-04-12] MEDS: CARDIZEM CD 120 MG PO (21:21)
[2024-04-12] MEDS: NEURONTIN 100 MG PO (21:21)
[2024-04-12] MEDS: NEURONTIN PO (22:50)
[2024-04-13 00:45] VITALS: BP 129/58
[2024-04-13 03:30] VITALS: BP 129/58
[2024-04-13 06:00] VITALS: BMI 26.9
[2024-04-13 07:19] VITALS: BP 154/73
[2024-04-13 08:12] LABS: INR 1.09; PT 14.7 Sec (11.4-14.6)
[2024-04-13] MEDS: HEPARIN 5000 UNITS SC (08:14)
[2024-04-13] MEDS: METAMUCIL, KONSYL 1 PACKET PO (08:15)
[2024-04-13] MEDS: NEURONTIN 100 MG PO (08:15)
--- NOTE | 2024-04-13 08:22 | W.PN.VS ---
Today's Communication / Plan
-
Discussed with Dr. Bridges
Assessment/Plan
-
POD1 Intravascular lithotripsy to right superficial femoral artery and popliteal artery (6 mm x 80 mm E8 shockwave balloon)
Balloon angioplasty and drug-eluting stent placement to right superficial femoral artery and popliteal artery (overlapping 6 mm x 140 mm, 6 mm x 140 mm, 6 mm x 80 mm)
Plan:
� Out of bed/ambulate
� P.o. medications
� Regular diet
� Okay for discharge from vascular standpoint, follow-up added to chart
Subjective Data
-
Date of Service: April 13, 2024
Patient seen at bedside this a.m. resting comfortably. No events overnight. Patient has no complaints at this time.
Objective Data
-
Vital Signs
Temp Pulse Resp BP Pulse Ox
98.0 F 69 18 154/73 97
04/13/24 07:19 04/13/24 07:19 04/13/24 07:19 04/13/24 07:19 04/13/24 07:19
Intake and Output
04/12/24 04/13/24 04/14/24
06:59 06:59 06:59
Intake Total 240 / 240
Balance 240 / 240
Intake:
Oral fluids 240 / 240
Other:
Number of approximated LARGE 1
amounts of urine
How many times incontinent 3
SATURATED amount urine
Calcium 9.5 mg/dl (8.4-10.2) 04/12/24 10:43
Physical Exam
-
AAOx3
No tachycardia
No tachypnea on room air
Abdomen soft
Groin site clean, dry, intact, soft, flat
Bounding right DP pulse, palpable left DP pulse
[2024-04-13] MEDS: TYLENOL 650 MG PO (08:40)
[2024-04-13 09:11] LABS: Hematocrit 34.4 % (37.0-47.0); Hemoglobin 11.2 g/dL (12.0-16.0); Mean Corp Hgb Conc. 32.6 g/dL (33.0-37.0); Mean Corpuscular Hgb 31.5 pg (27.0-31.0); Mean Corpuscular Volume 96.9 fL (81.0-99.0); Mean Platelet Volume 9.7 fL (7.4-10.4); Platelet Count 157 10^3/uL (130-400); Red Blood Cell Count 3.55 10^6/uL (4.20-5.40); Red Cell Dist. Width 13.5 % (11.5-14.5); White Blood Cell Count 3.4 10^3/uL (4.8-10.8)
[2024-04-13 09:19] LABS: Blood Urea Nitrogen 16 mg/dl (7-17); Calcium 9.1 mg/dl (8.4-10.2); Carbon Dioxide 19 mmol/L (22-30); Chloride 104 mmol/L (98-107); Estimated Creatinine Clearance 68 ml/min; Glucose 129 mg/dl (70-99); Potassium 4.5 mmol/L (3.5-5.1); Sodium 130 mmol/L (135-145); eGFR > 60.00
--- NOTE | 2024-04-13 09:37 | CM ---
Addendum entered by Shira Teixeira RN 04/13/24 09:49:
CM spoke with nurse Shahriar.
Call report to: [phone]
Fax report to: [phone]
Original Note:
Reviewed the chart notes and spoke with the patient at the bedside. The patient resides at [facility]. The patient uses a rolling walker and has a transport chair for long distance. The patient has been to [facility], [facility], and [facility]
[place] in the past. The patient's niece will provide transportation back to [facility]. Message left with the pneumatic tester mechanic at the [facility] to speak with the nurse regarding discharge. CM continues to be available to patient/family and
is monitoring medical plan for needs at discharge.
Plan: Discharge back to [facility] today.
[2024-04-13] MEDS: QUESTRAN 4 GRAM PO (09:56)
[2024-04-13 11:58] VITALS: BP 126/64
[2024-04-13] MEDS: FLUAD (65 yr+) 2024-2025 FORMULA 0.5 ML IM (14:36)
== END 2024-04-13 15:05 | disposition home or self-care (01) ==
LOC: CATH 10:24
PROVIDERS: Nurse Practitioner; ATTENDING PHYSICIAN Surgery Vascular Surgery; OTHER PHYSICIAN Internal Medicine; PRIMARYCARE PHYSICIAN Nurse Practitioner Family
DX: I70.223 Atherosclerosis of native arteries of extremities with rest pain, bilateral legs (principal); I10 Essential (primary) hypertension; J44.9 Chronic obstructive pulmonary disease, unspecified; Z86.73 Personal history of transient ischemic attack (TIA), and cerebral infarction without residual deficits; Z79.82 Long term (current) use of aspirin; Z79.899 Other long term (current) drug therapy; Z79.01 Long term (current) use of anticoagulants; Z88.0 Allergy status to penicillin; Z88.1 Allergy status to other antibiotic agents; Z88.2 Allergy status to sulfonamides
CPT/HCPCS: C9765; 75625; 75716; 80048; 82962; 85027; 85610; 85730; 87070; 93005; C1725; C1769; C1874; C1887; C1894; Q9967

== ENCOUNTER → 2024-04-19 13:31 | Outpatient (REF) | payer MEDICARE, SELFPAY | LOC: RAD 13:31 | PROVIDERS: ATTENDING PHYSICIAN Surgery Vascular Surgery; FAMILY PHYSICIAN Nurse Practitioner Family | DX: I73.9 Peripheral vascular disease, unspecified (principal) | CPT/HCPCS: 93922; 93925 ==

== ENCOUNTER → 2024-05-11 14:02 | Outpatient (REF) | payer MEDICARE, SELFPAY | LOC: RAD 14:02 | PROVIDERS: ATTENDING PHYSICIAN Surgery Vascular Surgery | DX: I77.1 Stricture of artery (principal) | CPT/HCPCS: 93970 ==

== ENCOUNTER → 2024-05-16 11:34 | Outpatient (REF) | payer MEDICARE, SELFPAY | LOC: RAD 11:34 | PROVIDERS: ATTENDING PHYSICIAN Surgery Vascular Surgery; FAMILY PHYSICIAN Nurse Practitioner Family | DX: I73.9 Peripheral vascular disease, unspecified (principal) | CPT/HCPCS: 93971 ==

== ENCOUNTER 2024-07-06 09:34 | Day surgery (SDC) | payer MEDICARE, SELFPAY ==
[2024-07-06 10:28] LABS: INR 1.65
[2024-07-06] MEDS: LOVENOX 80 MG SC (11:13)
[2024-07-06] MEDS: COUMADIN 10 MG PO (13:04)
--- NOTE | 2024-07-06 13:22 | PTCARENOTE ---
Pt sent home with 10 mg of coumadin today to take this evening at [address] Sanchez's order. Instructions given to Shahriar (at [facility] living facility) and pt and pt's niece, Elif, that pt will take 10 mg of Coumadin TOTAL (provided from hospital)
[facility] evening[facility].
== END 2024-07-06 13:26 ==
LOC: CATH 09:34
PROVIDERS: ATTENDING PHYSICIAN Internal Medicine; FAMILY PHYSICIAN Nurse Practitioner Family
DX: I48.19 Other persistent atrial fibrillation (principal); I08.1 Rheumatic disorders of both mitral and tricuspid valves; Z79.899 Other long term (current) drug therapy; Z79.01 Long term (current) use of anticoagulants; I10 Essential (primary) hypertension
CPT/HCPCS: 93312; 93320; 93325; 85610

== ENCOUNTER 2024-09-02 08:49 | Day surgery (SDC) | payer MEDICARE, SELFPAY ==
[2024-09-02 11:18] LABS: INR 2.77; PT 29.2 Sec (11.4-14.6)
== END 2024-09-02 12:55 | disposition home or self-care (01) ==
LOC: CATH 08:49
PROVIDERS: ATTENDING PHYSICIAN Internal Medicine; FAMILY PHYSICIAN Nurse Practitioner Family
DX: I48.0 Paroxysmal atrial fibrillation (principal); I08.3 Combined rheumatic disorders of mitral, aortic and tricuspid valves; I08.8 Other rheumatic multiple valve diseases; I10 Essential (primary) hypertension; Z79.899 Other long term (current) drug therapy
CPT/HCPCS: 93312; 93320; 93325; 85610; 92960; 93005

== ENCOUNTER → 2024-10-06 14:50 | Outpatient (REF) | payer MEDICARE, SELFPAY | LOC: RAD 14:50 | PROVIDERS: ATTENDING PHYSICIAN Surgery Vascular Surgery; FAMILY PHYSICIAN Nurse Practitioner Family | DX: I73.9 Peripheral vascular disease, unspecified (principal) | CPT/HCPCS: 93922 ==

== ENCOUNTER → 2024-11-16 10:58 | Outpatient (REF) | payer MEDICARE, SELFPAY | LOC: RCS 10:58 | PROVIDERS: ATTENDING PHYSICIAN Internal Medicine; FAMILY PHYSICIAN Nurse Practitioner Family | DX: I49.5 Sick sinus syndrome (principal) | CPT/HCPCS: 93306 ==

== ENCOUNTER 2024-12-01 10:05 | Day surgery (SDC) | payer MEDICARE, SELFPAY ==
[2024-11-17 13:14] VITALS: BMI 28.4
[2024-11-17 13:51] LABS: Hematocrit 34.2 % (37.0-47.0); Hemoglobin 11.4 g/dL (12.0-16.0); Mean Corp Hgb Conc. 33.3 g/dL (33.0-37.0); Mean Corpuscular Volume 94.2 fL (81.0-99.0); Nucleated Red Blood Cells % 0 %; Platelet Count 177 10^3/uL (130-400); Red Cell Dist. Width 16.0 % (11.5-14.5)
[2024-11-17 14:07] LABS: ALT (SGPT) 28 U/L (0-35); AST (SGOT) 30 U/L (14-36); Albumin 3.7 g/dl (3.5-5.0); Alkaline Phosphatase 59 U/L (38-126); Blood Urea Nitrogen 15 mg/dl (7-17); Calcium 9.0 mg/dl (8.4-10.2); Carbon Dioxide 28 mmol/L (22-30); Chloride 103 mmol/L (98-107); Estimated Creatinine Clearance 60 ml/min; Glucose 83 mg/dl (70-99); Potassium 4.4 mmol/L (3.5-5.1); Sodium 135 mmol/L (135-145); Total Protein 6.2 g/dl (6.3-8.2); eGFR > 60.00
[2024-12-01] VITALS (17 sets, daily range): BP systolic 126–206; BP diastolic 55–160; BMI 26.7
[2024-12-01 10:49] LABS: INR 1.65; PT 20.0 Sec (11.4-14.6)
[2024-12-01] MEDS: VANCOCIN 200 IV (12:01)
--- NOTE | 2024-12-01 14:17 | ITS.CL.PACE ---
[employer] - Pacemaker Implant
Pacemaker Implant
Procedure Report:
Dual Chamber Pacemaker Placement:
Ms. 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
Indications: Tachy Asael syndrome
Date of the Procedure:
12/01/2024
Pre-Operative Diagnosis: Tachy Asael syndrome
Post-Operative Diagnosis: Tachy Asael syndrome
Procedure Performed: DUAL CHAMBER PACEMAKER IMPLANTATION
Performing Physician:
Kerri Heart MD
Assistants:
EP staff
Anesthesia:
See anethesia report
Pre-operative antibiotics:
Aztreonam and Vancomycin
Detailed Description of the Procedure:
The patient was identified using hospital identification and informed consent obtained for the procedure. The risks were explained including, but not limited to: Bleeding, infection, arrhythmia, stroke, vascular/cardiac/lung puncture, surgery,
pacemaker dependency/device malfunction. All questions were answered.
The patient was brought to the electrophysiology laboratory in stable condition in fasting state. Continuous electrocardiographic and hemodynamic monitoring was initiated.
The initial rhythm was sinus bradycardia.
A surgical pause and time out was performed immediately prior to the procedure with review of her medical history, recent labs, allergies and medications with site of procedure identified and consent noted in the chart. Antibiotics pre operatively
given. All team members concurred.
The procedure site was meticulously prepared with surgical scrub and allowed to dry with no pooling. Sterile draping was applied to cover the procedure site. The image intensifier was draped with sterile bag and positioned over the patient.
The left infraclavicular region was prepped and draped in the usual sterile fashion. Local anesthesia was administered subcutaneously using 1% lidocaine / Bupivacaine. The left cephalic vein cutdown was performed with an incision at the
delto-pectoral groove, and vascular sheaths were introduced for lead access. These were advanced into the right ventricle and the right atrium.
There were extreme tortuosity noted in the subclavian vein and long sheaths were needed. The cardiac chambers were rotated as well.
The right ventricular lead was secured in position with an active fixation technique at the apical septal location.
The RA lead was attached in the right atrial appendage with active fixation.
There was excellent sensing, pacing, and impedance from the leads, with no diaphragmatic stimulation at 10 V output.�Bovie cautery, antibiotics, and fluoroscopy were used.
The sheaths were withdrawn, and the thresholds remained acceptable. The leads were secured in position at the venous entry site with 0-silk suture. A pocket was fashioned contiguous to the incision. The electrode terminals were connected to the
pulse generator, which was placed into the pocket.
The device was anchored to the underlying fascia using 0-silk suture.
The wound was irrigated thoroughly with antibiotic solution.
The wound was closed in 3 layers using 2-0 VLOC then two layers of 4-0 Biosyn sutures to the dermis. Steri-strips were applied externally and covered with Aquacel bandage.
Procedure End:
The procedure was tolerated well.
Estimated Blood loss:
10 cc
Specimens Removed:
No cultures and no specimens were obtained. No intraoperative pathology was identified.
Fluoro time:
1.6 min / 2.73mGy
Urine output:
None
Packs / Drains/ Tubes:
None
Instrument / Sponge Count Correct:
Yes
Complications of the Procedure:
None
Condition of Patient at Time of Transfer:
Hemodynamically stable with no neurological or vascular compromise.
Device information:�
Generator: [employer]; Model: W1DR01; Serial # [id number]�
Atrial Lead:
[employer]; Model: 5076-45; Serial # [id number]�
Measured data in the right atrium was sensing of 1.3 mV, impedance of 475 ohms and threshold of 0.5 V at 0.4ms.
RV Lead:
[employer]; Model: 5076-58; Serial # [id number]
Measured data in the RV lead was sensing of 14 mV, impedance of 836 ohms and threshold of 0.75 V at 0.4ms�
Asael parameter settings were AAIR < = > DDDR 60-130 bpm. �
Mode Switch: On
Paced AV interval: 180ms
Sensed AV interval: 150 ms.
Rate Adaptive A-V Interval: On
Output parameters:
Amplitude (V) Pulse Width (ms) Sensitivity (mV)
RA: 3.5 0.4 0.3
RV: 3.5 0.4 0.9
Summary:
Successful implantation of MRI compatible dual chamber [employer] pacemaker
Results/Recommendations:
-Please follow up CXR�
1. Please provide patient with adequate pain control�
Instructions to be given to patient:�
- Please follow up with [facility] at [address] [place] [address] ([phone]) to get your wound checked within 14 days of your discharge.
- Do not wet incision site until after it is evaluated at cardiology clinic. No soaking or bath until then. Showers or Sponge baths are OK.�Dab dry the area after a shower.
- Do not lift left elbow above shoulder, particularly with sudden jerking movements, for 1 month�
- Do not lift anything weighing more than 10 pounds with the left arm for 1 month�
- If you notice any fevers, shortness of breath, lightheadedness, chest pain, or worsening swelling in the wound site, please contact the arrhythmia clinic, contact your wellness nurse, or present to the hospital for evaluation.�
Kerri Heart MD
Electrophysiology
--- NOTE | 2024-12-01 16:34 | W.PN.UPDATE ---
Update Note
Progress Note Update
84 yo WF s/p PPM (same day). She denies cp, sob, voiding, amb with assistance to BR, EKG SR, CXR no PTX, leads in good position final read pending, L CW site small area of marked drainage. Activity restrictions reviewed and reinforced as she uses
her arms to help get oob and in/out of wheelchair. She will resume Warfarin on Thursday evening. She will have incision check appointment in 1 week. She is for d/c home to assisted living facility at [facility]. They were updated on her care needs at
time of discharge. She is for d/c home after 6pm.
== END 2024-12-01 15:15 | disposition home or self-care (01) ==
LOC: CATH 10:05
PROVIDERS: ATTENDING PHYSICIAN Internal Medicine Cardiovascular Disease; FAMILY PHYSICIAN Nurse Practitioner Family; OTHER PHYSICIAN Internal Medicine
DX: I49.5 Sick sinus syndrome (principal); I44.1 Atrioventricular block, second degree; I95.9 Hypotension, unspecified; I73.9 Peripheral vascular disease, unspecified; I48.19 Other persistent atrial fibrillation; J44.9 Chronic obstructive pulmonary disease, unspecified; E78.5 Hyperlipidemia, unspecified; H91.90 Unspecified hearing loss, unspecified ear; I11.9 Hypertensive heart disease without heart failure; I34.0 Nonrheumatic mitral (valve) insufficiency; I47.10 Supraventricular tachycardia, unspecified; I47.20 Ventricular tachycardia, unspecified; I49.8 Other specified cardiac arrhythmias; I69.920 Aphasia following unspecified cerebrovascular disease; I10 Essential (primary) hypertension; J45.990 Exercise induced bronchospasm; M19.90 Unspecified osteoarthritis, unspecified site; Z85.118 Personal history of other malignant neoplasm of bronchus and lung; Z87.440 Personal history of urinary (tract) infections; Z88.0 Allergy status to penicillin; Z88.1 Allergy status to other antibiotic agents; Z88.2 Allergy status to sulfonamides; Z90.49 Acquired absence of other specified parts of digestive tract; Z91.048 Other nonmedicinal substance allergy status; Z96.643 Presence of artificial hip joint, bilateral; Z99.3 Dependence on wheelchair
CPT/HCPCS: 33208; 36415; 71045; 80053; 85025; 85610; 93005; C1785; C1898